=== PATIENT | female | born 1970 | race Caucasian/White ===

== ENCOUNTER 2021-10-15 18:00 | Emergency (ER) | payer OTHER, SELFPAY ==
[2021-10-15 18:07] VITALS: BP 122/89; PULSE 96; RESP 20; TEMP 36.7; O2SAT 98
--- NOTE | 2021-10-15 18:12 | ED.URI ---
HPI - URI/Sore Throat General Chief Complaint: Upper Respiratory Infection Stated Complaint: Chest Contestion Time Seen by Provider: 10/15/21 18:12 Source: patient and RN notes reviewed Related Data Home Medications Medication Instructions Recorded Confirmed cetirizine [Zyrtec] mg 05/15/19 metoprolol tartrate 100 mg PO DAILY 05/15/19 05/15/19 Allergies Allergy/AdvReac Type Severity Reaction Status Date / Time cefprozil Allergy Unknown Hives Verified 06/25/16 15:51 Cephalosporins Allergy Unknown Verified 04/02/15 14:19 Review of Systems Review of Systems: CONSTITUTIONAL: Denies fever, chills, or sweats. EYES: Denies visual changes, redness, or discharge. ENT: Denies rhinorrhea, congestion, sore throat, or otalgia. CARDIOVASCULAR: Denies chest pain, palpitations, or edema. RESPIRATORY: Denies cough or dyspnea. GASTROINTESTINAL: Denies abdominal pain, nausea, vomiting, or diarrhea. GENITOURINARY: Denies dysuria or hematuria. SKIN: Denies rash or itching. MUSCULOSKELETAL: Denies back pain, joint pain, or myalgia. NEUROLOGIC: Denies headache, numbness, or weakness. PSYCHIATRIC: Denies anxiety or depression. All other systems reviewed are negative, except as documented in HPI. [facility] Family History Family History Father Cerebrovascular accident Family history of Alzheimer's disease, Onset Age: 78 Grandparent Cerebrovascular accident Family history of malignant neoplasm Other Family history of blood dyscrasia Family history of pulmonary embolism Social History Social History Smoking status: Former smoker Smoking end date: 06/15/12 Alcohol intake: never Comments At the time of my signature, I reviewed and agree with the nursing past medical, surgical, social, and family history. There is no relevant family history pertinent to the patient complaint. Exam Narrative: GENERAL: This is a well-nourished, well-developed patient, in no apparent distress. HEAD: normocephalic, atraumatic. EYES: PERRL. Sclera clear/white. Vision is grossly intact. EARS: External ears normal, auditory canals clear and without drainage, TMs normal without perforation. Hearing grossly intact. NOSE: External nose normal with no obvious nasal discharge, nares without redness, no rhinorrhea. THROAT: Mucous membranes moist, posterior pharynx clear. NECK: Neck supple, non-tender without lymphadenopathy, masses or thyromegaly. CARDIOVASCULAR: Regular rate and rhythm without murmurs, gallops, or rubs. RESPIRATORY: Clear to auscultation. Breath sounds equal bilaterally. No wheezes, rales, or rhonchi. GASTROINTESTINAL: Abdomen soft, non-tender, nondistended. Bowel sounds are active. No hepato-splenomegaly, or palpable masses. No guarding. SKIN: warm, intact with no suspicious lesions or rash, good texture and turgor. NEURO: awake, alert, and oriented to person, place and time. There were no obvious focal neurologic abnormalities. EXTREMITIES: No clubbing, cyanosis, or edema. No joint tenderness, effusion, or edema noted. No calf tenderness. Negative Homans sign bilaterally. BACK: Nontender without deformity or crepitance. No flank tenderness. Course Course Level of Care: Express Care Visit MDM - URI/Sore Throat Differential Diagnosis Differential diagnosis: Likely upper respiratory infection, otitis media, sinusitis, viral infection, bronchitis, influenza and pharyngitis Critical Care Time Critical Care Time Critical Care Time: No Discharge Plan Discharge Prescriptions: No Action metoprolol tartrate 100 mg Tablet 100 mg PO DAILY RF: 0 Zyrtec 10 mg Capsule RF: 0
[2021-10-15 18:17] VITALS: BP 122/89; PULSE 96; RESP 20; TEMP 36.7; O2SAT 98
--- NOTE | 2021-10-15 18:20 | ED.URI ---
HPI - URI/Sore Throat General Chief Complaint: Upper Respiratory Infection Stated Complaint: Chest Contestion Time Seen by Provider: 10/15/21 18:12 Source: patient and RN notes reviewed History of Present Illness HPI Narrative: Patient is a 50-year-old female who presents the urgent care with complaints of persistent cough and intermittent shortness of breath. Patient states that she started having symptoms last Thursday and tested positive for COVID on Thursday. Patient states she also tested herself at home today and was still positive on a rapid test. Patient states that her symptoms have greatly improved and she no longer has the severe sinus congestion, fever or body aches. Patient states she only has instances with coughing and inability to catch her breath. Patient is currently denying of any shortness of breath or chest pain. No other acute complaints. No acute distress noted. Patient aware of the plan of care. Some parts of this dictation were generated by voice recognition software and may contain typographical and/or grammatical inaccuracies. Related Data Home Medications Medication Instructions Recorded Confirmed cetirizine [Zyrtec] 10 mg PO PRN PRN 05/15/19 erenumab-aooe [Aimovig 70 mg SUBCUT MONTHLY 10/15/21 10/15/21 Autoinjector] rizatriptan 10 mg PO DAILY PRN 10/15/21 10/15/21 sertraline 100 mg PO DAILY 10/15/21 10/15/21 Allergies Allergy/AdvReac Type Severity Reaction Status Date / Time cefprozil Allergy Unknown Hives Verified 06/25/16 15:51 Cephalosporins Allergy Unknown Rash Verified 10/15/21 18:15 Review of Systems Review of Systems: CONSTITUTIONAL: Denies fever, chills, or sweats. EYES: Denies visual changes, redness, or discharge. ENT: Denies rhinorrhea, congestion, sore throat, or otalgia. CARDIOVASCULAR: Denies chest pain, palpitations, or edema. RESPIRATORY: Reports of a faint cough with intermittent dyspnea GASTROINTESTINAL: Denies abdominal pain, nausea, vomiting, or diarrhea. GENITOURINARY: Denies dysuria or hematuria. SKIN: Denies rash or itching. MUSCULOSKELETAL: Denies back pain, joint pain, or myalgia. NEUROLOGIC: Denies headache, numbness, or weakness. All other systems reviewed are negative, except as documented in HPI. [facility] Family History Family History Father Cerebrovascular accident Family history of Alzheimer's disease, Onset Age: 78 Grandparent Cerebrovascular accident Family history of malignant neoplasm Other Family history of blood dyscrasia Family history of pulmonary embolism Social History Social History Smoking status: Former smoker Smoking end date: 06/15/12 Alcohol intake: never Comments At the time of my signature, I reviewed and agree with the nursing past medical, surgical, social, and family history. There is no relevant family history pertinent to the patient complaint. Exam Narrative: GENERAL: This is a well-nourished, well-developed patient. Appears anxious HEAD: normocephalic, atraumatic. EYES: PERRL. Sclera clear/white. Vision is grossly intact. EARS: External ears normal, auditory canals clear and without drainage, TMs normal without perforation. Hearing grossly intact. NOSE: External nose normal with no obvious nasal discharge, nares without redness, clear rhinorrhea. THROAT: Mucous membranes moist, posterior pharynx clear. Mild postnasal drainage NECK: Neck supple CARDIOVASCULAR: Regular rate and rhythm without murmurs, gallops, or rubs. RESPIRATORY: Clear to auscultation. Breath sounds equal bilaterally. No wheezes, rales, or rhonchi. SKIN: warm, intact with no suspicious lesions or rash, good texture and turgor. NEURO: awake, alert, and oriented to person, place and time. There were no obvious focal neurologic abnormalities. EXTREMITIES: No clubbing, cyanosis, or edema. Course Course Level of Care: Express Care Visi
== END 2021-10-15 18:30 | disposition home or self-care (01) ==
PROVIDERS: Emergency Provider Nurse Practitioner Family
DX: U07.1 COVID-19 (principal); Z87.891 Personal history of nicotine dependence
CPT/HCPCS: 99213; G0463

== ENCOUNTER 2021-11-29 17:36 | Emergency (ER) | payer OTHER, SELFPAY ==
--- NOTE | 2021-11-29 17:38 | ED.DENTAL ---
HPI - Dental/Oral General Chief complaint: Dental/Oral Stated complaint: Toothache Time Seen by Provider: 11/29/21 17:38 Source: patient and RN notes reviewed History of Present Illness HPI Narrative: Patient is a 50-year-old female who presents the urgent care with complaints of upper right dental pain. Patient states its been ongoing for the last couple days and more severe this morning. Patient states she tried Tylenol, ibuprofen and migraine medicine without relief. Denies any fever, nausea or vomiting. Patient states she was getting appropriate dental care until she lost her dental insurance. 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 No acute distress noted. Patient aware of the plan of care. Some parts of this dictation were generated by voice recognition software and may contain typographical and/or grammatical inaccuracies. Related Data Home Medications Medication Instructions Recorded Confirmed erenumab-aooe 70 mg/mL 70 mg subcut MONTHLY 10/15/21 11/29/21 subcutaneous auto-injector (Aimovig Autoinjector) rizatriptan 10 mg tablet 10 mg PO DAILY PRN Migraine 10/15/21 11/29/21 Headache sertraline 100 mg tablet 100 mg PO DAILY 10/15/21 11/29/21 Allergies Allergy/AdvReac Type Severity Reaction Status Date / Time cefprozil Allergy Unknown Hives Verified 11/29/21 17:42 Cephalosporins Allergy Unknown Rash Verified 11/29/21 17:42 Review of Systems Review of Systems: CONSTITUTIONAL: Denies fever, chills, or sweats. EYES: Denies visual changes, redness, or discharge. ENT: Denies rhinorrhea, congestion, sore throat, or otalgia. Reports of upper right dental pain CARDIOVASCULAR: Denies chest pain, palpitations, or edema. RESPIRATORY: Denies cough or dyspnea. GASTROINTESTINAL: Denies abdominal pain, nausea, vomiting, or diarrhea. GENITOURINARY: Denies dysuria or hematuria. SKIN: Denies rash or itching. MUSCULOSKELETAL: Denies back pain, joint pain, or myalgia. NEUROLOGIC: Denies headache, numbness, or weakness. All other systems reviewed are negative, except as documented in HPI. [facility] Family History Family History Father Cerebrovascular accident Family history of Alzheimer's disease, Onset Age: 78 Grandparent Cerebrovascular accident Family history of malignant neoplasm Other Family history of blood dyscrasia Family history of pulmonary embolism Social History Social History Smoking status: Former smoker Smoking end date: 06/15/12 Alcohol intake: never Comments At the time of my signature, I reviewed and agree with the nursing past medical, surgical, social, and family history. There is no relevant family history pertinent to the patient complaint. Exam Narrative: GENERAL: This is a well-nourished, well-developed patient, in no apparent distress. HEAD: normocephalic, atraumatic. EYES: PERRL. Sclera clear/white. Vision is grossly intact. EARS: External ears normal NOSE: External nose normal with no obvious nasal discharge, nares without redness, no rhinorrhea. THROAT: Mucous membranes moist, posterior pharynx clear. DENTAL: Poor dentition throughout with multiple carious lesions. Upper first and second right premolar avulsed at the gumline with carious lesions and surrounding erythema NECK: Neck supple CARDIOVASCULAR: Regular rate and rhythm without murmurs, gallops, or rubs. RESPIRATORY: Clear to auscultation. Breath sounds equal bilaterally. No wheezes, rales, or rhonchi. SKIN: warm, intact with no suspicious lesions or rash, good texture and turgor. NEURO: awake, alert, and oriented to person, place and time. There were no obvious focal neurologic abnormalities. EXTREMITIES: No clubbing, cyanosis, or edema. Course Course Level of Care: Express Care Visit Vital Signs Vital signs: Vital Signs Temperature 99.1 F 11/29/21 17:43 Pulse Rate 77 06
[2021-11-29 17:43] VITALS: BP 124/84; PULSE 77; RESP 16; TEMP 37.3; O2SAT 100
[2021-11-29 17:50] VITALS: BP 124/84; PULSE 77; RESP 16; TEMP 37.3; O2SAT 100
== END 2021-11-29 17:59 | disposition home or self-care (01) ==
PROVIDERS: Emergency Provider Nurse Practitioner Family; PCP Physician Assistant Medical
DX: K02.9 Dental caries, unspecified (principal); S02.5XXA Fracture of tooth (traumatic), initial encounter for closed fracture; X58.XXXA Exposure to other specified factors, initial encounter; Z87.891 Personal history of nicotine dependence; J45.909 Unspecified asthma, uncomplicated; E05.90 Thyrotoxicosis, unspecified without thyrotoxic crisis or storm; F41.9 Anxiety disorder, unspecified
CPT/HCPCS: 99213; G0463

== ENCOUNTER 2024-02-14 09:37 | Emergency (ER) | payer OTHER, SELFPAY ==
[2024-02-14 09:43] VITALS: BP 117/78; PULSE 66; RESP 16; TEMP 36.9; O2SAT 100
--- NOTE | 2024-02-14 09:52 | ED.GENADULT ---
HPI - General Adult General Chief complaint: Skin/Abscess/Foreign Body Stated complaint: Rash/Eye Swelling Source: patient Mode of arrival: ambulatory Limitations: no limitations History of Present Illness HPI narrative: Patient presents for evaluation of redness to her face for the last week. Symptoms started after using hyaluronic acid body wash on her face. She states that the redness is improving. She woke from sleep this morning with some puffiness to her lower eyelids. Denies any visual disturbance. She does not wear contacts. No redness, itching or pain in the eyes. She took zyrtec for her symptoms. Related Data Home Medications Medication Instructions Recorded Confirmed escitalopram oxalate 10 mg tablet 10 mg PO DAILY 02/14/24 02/14/24 Allergies Allergy/AdvReac Type Severity Reaction Status Date / Time cefprozil Allergy Unknown Hives Verified 02/14/24 09:48 Cephalosporins Allergy Unknown Rash Verified 02/14/24 09:48 Review of Systems Review of Systems: CONSTITUTIONAL: Denies fever, chills, or sweats. EYES: Reports puffiness to eyelids bilaterally. Denies visual changes, redness, or discharge. ENT: Denies rhinorrhea, congestion, sore throat, or otalgia. CARDIOVASCULAR: Denies chest pain, palpitations, or edema. RESPIRATORY: Denies cough or dyspnea. GASTROINTESTINAL: Denies abdominal pain, nausea, vomiting, or diarrhea. GENITOURINARY: Denies dysuria or hematuria. SKIN: Reports redness to the face. MUSCULOSKELETAL: Denies back pain, joint pain, or myalgia. NEUROLOGIC: Denies headache, numbness, dizziness, or weakness. PSYCHIATRIC: Denies anxiety or depression. [facility] Past Medical History Medical History No pertinent past medical history Surgical History Surgical History History of oophorectomy History of tubal ligation Family History Family History Father Cerebrovascular accident Family history of Alzheimer's disease, Onset Age: 78 Grandparent Cerebrovascular accident Family history of malignant neoplasm Other Family history of blood dyscrasia Family history of pulmonary embolism Social History Social History (Updated 02/14/24 @ 09:55 by Santana Swenson, [facility], ) Smoking status: Current every day smoker Tobacco type: e-cigarettes/vaping Smoking end date: 06/15/12 Alcohol intake: never Substance use: current Substance use type: marijuana Gender identity (if verbalized by the patient): Female Spiritual care concerns: No Exam Narrative: GENERAL: Well-appearing, well-nourished, and in no acute distress. HEAD: Normocephalic, atraumatic. EYES: PERRLA and EOMI. ENT: Nares clear, no rhinorrhea or epistaxis. Mucous membranes moist. Oropharynx without tonsillar hypertrophy exudate or other lesions. Bilateral TMs pearly herzog nonbulging NECK: Supple. No adenopathy or masses. No carotid bruits or JVD CHEST: Clear to auscultation. No respiratory distress. No wheezes rales or rhonchi HEART: Regular rate and rhythm. No murmur heard. Normal peripheral pulses. ABDOMEN: Soft, nontender, nondistended, normal active bowel sounds. EXTREMITIES: Normal range of motion. No edema. SKIN: Mild erythema noted to the face NEURO: No focal deficits. Alert and oriented x3. PSYCH: Normal mood and affect. Course Course Emergency Course: This is a 53-year-old female who presented for evaluation of redness to the face with puffiness to her eyelids. Symptoms likely 2/2 application of hyaluronic acid. Stop use to face. Willl discharge with medrol Dosepak. She may continue to take zyrtec or can switch to benadryl. Follow up with primary provider. Go to the ER for worsening symptoms. Pt in agreement with plan of care. Level of Care: Express Care Visit Vital Signs Vital signs: Vital Signs Te
== END 2024-02-14 09:52 | disposition home or self-care (01) ==
PROVIDERS: Emergency Provider Nurse Practitioner; PCP Physician Assistant
DX: T78.8XXA Other adverse effects, not elsewhere classified, initial encounter (principal); L53.9 Erythematous condition, unspecified; F17.290 Nicotine dependence, other tobacco product, uncomplicated; F12.90 Cannabis use, unspecified, uncomplicated
CPT/HCPCS: 99203; G0463

== ENCOUNTER 2024-07-31 19:53 | Emergency (ER) | payer MEDICARE, MEDICAID, SELFPAY ==
--- OUTSIDE RECORDS SUMMARY | 2024-07-31 19:55 | XMS_ITS | Encounter Summary ---
Author Organization [facility] Address [address] [place] [address] Phone Care Team Providers Care Circle Beveler Name Role Phone Angela, Cindy Matos [facility] Primary Care Pro vider Shawna Yip SHIP'S ENGINEER, CONVEYOR BELT OPERATOR Unavailable [phone] Reason for Visit * Reason Comments Medication Refill Encounter Details Date Type Department Care Team (Late st Contact Info) Description 01/20/2023 Refill [facility]rology - [address] [place] [id number] Shawna Yip, SHIP'S ENGINEER, CONVEYOR BELT OPERATOR [address] [place] [address] Medication Refill Social History Tobacco Use Types Packs/Day Years Used Date Smoking Tobacco: Former Cigarettes Q uit: 01/28/2015 Smokeless Tobacco: Never Alcohol Use Standard Drinks/Week Comments No 0 (1 standard drink = 0.6 oz pur e alcohol) PHQ-2 Answer Date Recorded Total Score - Questions 1-9 2 01/13 Sexually Active Control Partners Comments Yes None Male Comments No Sex and Gender Information Value Date Recorded Sex Assigned at Female 01/26/2023 7:31 AM CDT Legal Sex Female 11:54 PM CDT Gender Identity Female 01/26/2023 7:31 AM CDT Sexual Orientation Not on file documented as of this encounter Miscellaneous Notes * Telephone Encounter - Erika Stuton RN - 01/20/2023 11:54 AM CDT Medication failed the protocol, provider to review and approve the medication order if appropriate. Requested Prescriptions Pending Prescriptions Disp Refills sertraline (ZOLOFT) 100 MG Tablet [Pharmacy Med Name: Sertraline HCl 100 MG Oral Tablet] 90 Tablet 0 Sig: Take 1 tablet by mouth once daily SSRI (6 Month Refill Only) Protocol Failed - 01/20/2023 9:21 AM Failed - Visit with relevant provider in past 6 months or upcoming 90 days Recent Visits No visits were found meeting these conditions. Showing recent visits within past 182 days and meeting all other requirements Future Appointments Date Type Provider Dept 01/26/23 Appointment Cindy Miller PAC [facility] 02/04/23 Appointment Cindy Miller PAC [facility] Showing future appointments within next 90 days and meeting all other requirements Failed - Has an encounter in the past 6 months with a depression, anxiety, adjustment disorder, OCD, or PTSD visit diagnosis Passed - No test in the past 12 months or most recent test was negative Passed - No active on record Passed - Patient has established therapy with SS[facility] for at least 6 months documented in this encounter Plan of Treatment Upcoming Encounters Date Type Department Care Team (Latest Contact Info) Description 08/02/2024 1:00 PM MIXER ATTENDANT Outpatient Clinic Visit [facility] [address] [place] [address] Cindy Miller, NATHAN [address] [place] [address] Bhavya Rahman LCSW [address] [place] [address] Discharge Disposition: Discharged to home or Selfcare documented as of this encounter Visit Diagnoses Diagnosis Anxiety Anxiety state, unspecified documented in this encounter Additional Health Concerns Infection Onset Date Last Indicated Resolved Time Respiratory Rule-Out 04/21/2024 04/21/2024 11/07/2 024 4:11 PM MIXER ATTENDANT COVID - 19 04/21/2024 04/21/2024 04/21/2024 4:11 PM MIXER ATTENDANT COVID - 19 06/09/2024 06/09/2024 06/10/2024 12:1 9 AM MIXER ATTENDANT Assessment Noted Time PHQ-9 Depression Total Score: 2 01/23/20 22 4:00 PM CDT documented as of this encounter Care Teams Circle Beveler Relationship Specialty Start Date End Date Cindy Miller, [facility] [address] [place] [address] PCP - General Physician Hygiene Assistant 01/22/22 Shawna Yip, SHIP'S ENGINEER, CONVEYOR BELT OPERATOR [address] [place] [address] Nurse Practitioner Advanced Practice Nurse 05/07/22 documented as of this encounter
--- OUTSIDE RECORDS SUMMARY | 2024-07-31 19:55 | XMS_ITS | Encounter Summary ---
Author Organization [facility] Address [address] [place] [address] Phone Care Team Providers Care Pharmacognosy Teacher Name Role Phone Angela, Cindy Matos PAC Primary Care Pro vider Shawna Yip APRN, LEAD PROCESS ENGINEER Unavailable +1- [phone] Reason for Visit * Reason Comments Medication Refill Encounter Details Date Type Department Care Team (Late st Contact Info) Description 09/30/[address] [facility] - Neurology - [place] [address] [place] [id number] Shawna Yip, LANDSCAPE SPECIALIST, LEAD PROCESS ENGINEER [address] [place] [address] Medication Refill Social History Tobacco Use Types Packs/Day Years Used Date Smoking Tobacco: Former Cigarettes Q uit: 01/28/2015 Smokeless Tobacco: Never Alcohol Use Standard Drinks/Week Comments No 0 (1 standard drink = 0.6 oz pur e alcohol) [facility] Utilities Answer Date Recorded In the past 12 months has [employer] electric, gas, oil, or water company threatened to shut off services in your home? Yes 08/03/2023 Social Connection and Isolation Panel [NHANES] A nswer Date Recorded In a typical week, how many times do you talk on the phone with family, friends, or neighbors? Once a week 08/03/2023 Frequency of Social Gatherings with Friends and Family Not on file 08/03/2023 Attends Buddhism Services Not on file 08/03 Active Member of Clubs or Organizations Not on f ile 08/03/2023 Attends Club or Organization Meetings Not on sana e 08/03/2023 Marital Status Not on file 08/03/2023 AUDIT-C Answer Date Recorded Q1: How often do you have a drink containing alcohol? Never 08/03/2023 Q2: How many drinks containi ng alcohol do you have on a typical day when you are drinking? Patient does not drink Q3: How often do you have si x or more drinks on one occasion? Never 08/03/2023 Overall Financial Resource Strain (CARDIA) Answe r Date Recorded How hard is it for you to pa y for the very basics like food, housing, medical care, and heating? Not very hard 08/03/2023 PHQ-2 Answer Date Recorded Total Score - Questions 1-9 7 01/13 [facility] - Occupational Stress Questionnaire Answer Date Recorded Do you feel stress - tense, restless, nervous, or anxious, or unable to sleep at night because your mind is troubled all the time - these days? Very much 08/03/2023 Exercise Vital Sign Answer Date Recorde d On average, how many days pe r week do you engage in moderate to strenuous exercise (like a brisk walk)? 0 days 08/03/2023 On average, how many minutes do you engage in exercise at this level? 0 min 08/03/2023 Hunger Vital Sign Answer Date Recorded Within the past 12 months, y ou worried that your food would run out before you got the money to buy more. Never true 08/03/19 24 Within the past 12 months, t he food you bought just didn't last and you didn't have money to get more. Never true 08/03/2023 PRAPARE - Transportation Answer Date Re corded In the past 12 months, has l ack of transportation kept you from medical appointments or from getting medications? Yes 07/16 In the past 12 months, has l ack of transportation kept you from meetings, work, or from getting things needed for daily living? No 08/03/2023 Housing Stability Vital Sign Answer Micheal e Recorded In the last 12 months, was t here a time when you were not able to pay the mortgage or rent on time? No 08/03/2023 In the last 12 months, how many places have you lived? 1 08/03/2023 In the last 12 months, was t here a time when you did not have a steady place to sleep or slept in a alf (including now)? No 08/03/2023 Education Answer Date Recorded What is the highest level of school you have completed or the highest degree you have received? Associate degree: occupational, technical, or vocational program 01/26/2023 Sexually Active Control Partners Comments Yes None Male Comments No Sex and Gender Information Value Date Recorded Sex Assigned at Female 01/26/2023 7:31 AM CDT Legal Sex Female 11:54 PM CDT Gender Identity Female 01/26/2023 7:31 AM CDT Sexual Orientation Not on file documented as of this encounter Plan of Treatment Upcoming Encounters Date Type Department Care Team (Latest Contact Info) Description 08/02/2024 1:00 PM SECOND SHIFT SUPERVISOR Outpatient Clinic Visit [facility] [address] [place] [address] Cindy Miller, PAC [address] [place] [address] Bhavya Rahman, LACQUER COATER [address] [place] [address] Discharge Disposition: Discharged to home or Selfcare documented as of this encounter Visit Diagnoses Diagnosis Chronic migraine w/o aura w/o status migrainosus, not intractable Chronic migraine without aura, without mention of intractable migraine without mention of status migrainosus documented in this encounter Additional Health Concerns Infection Onset Date Last Indicated Resolved Time Respiratory Rule-Out 04/21/2024 04/21/2024 024 4:11 PM SECOND SHIFT SUPERVISOR COVID - 19 04/21/2024 04/21/2024 04/21/2024 4:11 PM SECOND SHIFT SUPERVISOR COVID - 19 06/09/2024 06/09/2024 06/10/2024 12:1 9 AM SECOND SHIFT SUPERVISOR Assessment Noted Time PHQ-9 Depression Total Score: 7 01/27/20 23 3:00 PM CDT documented as of this encounter Care Teams Pharmacognosy Teacher Relationship Specialty Start Date End Date Cindy Miller, NATHAN [address] [place] [address] PCP - General Physician Dust Mill Operator 01/22/22 Shawna Yip, LANDSCAPE SPECIALIST, LEAD PROCESS ENGINEER [address] [place] [address] Nurse Practitioner Advanced Practice Nurse 05/07/22 documented as of this encounter
--- OUTSIDE RECORDS SUMMARY | 2024-07-31 19:55 | XMS_ITS | Encounter Summary ---
Author Organization [facility] Address [address] [place] [address] Phone Care Team Providers Care General Hardware Salesperson Name Role Phone Provider, None Primary Care Provider Cindy Serrato PAC Primary Care Pro vider Shawna Yip CNA INSTRUCTOR, VENEER JOINTER OPERATOR Unavailable [phone]- [phone] Reason for Visit * Reason Comments Medication Refill Encounter Details Date Type Department Care Team (Late st Contact Info) Description 12/30/2021 Refill [facility] - [facility]rology [facility] [address] [place] [address] Frank Bowling MD [address] [place] [phone] Medication Refill Social History Tobacco Use Types Packs/Day Years Used Date Smoking Tobacco: Former Cigarettes Q uit: 01/28/2015 Smokeless Tobacco: Never Alcohol Use Standard Drinks/Week Comments No 0 (1 standard drink = 0.6 oz pur e alcohol) PHQ-2 Answer Date Recorded Total Score - Questions 1-9 6 01/13 Sexually Active Control Partners Comments Yes [...] (Latest Contact Info) Description 08/02/2024 1:00 PM RN PERINATAL Outpatient Clinic Visit [facility] [address] [place] [address] Cindy Milelr, PAC [address] [place] [address] Bhavya Rahman, CHIEF SALES OFFICER [address] [place] [address] Discharge Disposition: Discharged to home or Selfcare documented as of this encounter Visit Diagnoses Diagnosis Chronic migraine w/o aura w/o status migrainosus, not intractable Chronic migraine without aura, without mention of intractable migraine without mention of status migrainosus documented in this encounter Additional Health Concerns Infection Onset Date Last Indicated Resolved Time Respiratory Rule-Out 04/21/2024 04/21/2024 024 4:11 PM RN PERINATAL COVID - 19 04/21/2024 04/21/2024 04/21/2024 4:11 PM RN PERINATAL COVID - 19 06/09/2024 06/09/2024 06/10/2024 12:1 9 AM RN PERINATAL Assessment Noted Time PHQ-9 Depression Total Score: 6 01/25/20 21 9:00 AM CDT documented as of this encounter Care Teams General Hardware Salesperson Relationship Specialty Start Date End Date Provider, None [place] PCP - General 07/05/20 01/21/22 Cindy Miller, PAC [address] [place] [address] PCP - General Physician Coach Cleaner 01/22/22 Shawna Yip APRN, VENEER JOINTER OPERATOR [address] [place] [address] Nurse Practitioner Advanced Practice Nurse 05/07/22 documented as of this encounter
--- OUTSIDE RECORDS SUMMARY | 2024-07-31 19:55 | XMS_ITS | Encounter Summary ---
Author Organization [facility] Address [address] [place] [address] Phone Care Team Providers Care Server Software Engineer Name Role Phone Angela, Cindy Matos [facility] Primary Care Pro vider Shawna Yip SUPERVISOR SAWING AND ASSEMBLY, BUILDING SUPERINTENDENT Unavailable [phone]- [phone] Reason for Visit * Reason Comments Medication Refill Encounter Details Date Type Department Care Team (Late st Contact Info) Description 11/27/2022 Refill [facility] - Neurology - [place] [address] [place] [id number] Shawna Yip, SUPERVISOR SAWING AND ASSEMBLY, BUILDING SUPERINTENDENT [address] [place] [address] Medication Refill Social History Tobacco Use Types [...] Miscellaneous Notes * Telephone Encounter - Erika Sutton RN - 11/27/2022 1:22 PM CDT Medication failed the protocol, provider to review and approve the medication order if appropriate. Requested Prescriptions Pending Prescriptions Disp Refills Aimovig 140 MG/ML Solution Auto-injector [Pharmacy Med Name: Aimovig 140 MG/ML Subcutaneous Solution Auto-injector] 1 mL 3 Sig: INJECT 1ML (140MG) SUBCUTANEOUSLY ONCE EVERY 28 DAYS Not Delegated - Off Protocol Failed - 11/27/2022 1:12 PM Failed - This refill cannot be delegated Passed - Visit with relevant provider in past 12 months or upcoming 90 days Recent Visits Date Type Provider Dept 05/07/22 Office Visit Shawna Yip APRN, BUILDING SUPERINTENDENT [facility] 02/03/22 Office Visit Cindy Miller, PAC [facility] 01/22/22 Office Visit Cindy Miller, PAC [facility] Showing recent visits within past 365 days and meeting all other requirements Future Appointments Date Type Provider Dept 01/26/23 Appointment Cindy Miller, PAC [facility] Showing future appointments within next 90 days and meeting all other requirements documented in this encounter Plan of Treatment Upcoming Encounters Date Type Department Care Team (Latest Contact Info) Description 08/02/2024 1:00 PM PRINTER APPRENTICE [facility] [address] [place] [address] Cindy Miller, PAC [address] [place] [address] Bhavya Rahman, BOILERMAKING SUPERVISOR [address] [place] [address] Discharge Disposition: Discharged to home or Selfcare documented as of this encounter Visit Diagnoses Diagnosis Chronic migraine w/o aura w/o status migrainosus, not intractable Chronic migraine without aura, without mention of intractable migraine without mention of status migrainosus documented in this encounter Additional Health Concerns Infection Onset Date Last Indicated Resolved Time Respiratory Rule-Out 04/21/2024 04/21/2024 024 4:11 PM PRINTER APPRENTICE COVID - 19 04/21/2024 04/21/2024 04/21/2024 4:11 PM PRINTER APPRENTICE COVID - 19 06/09/2024 06/09/2024 06/10/2024 12:1 9 AM PRINTER APPRENTICE Assessment Noted Time PHQ-9 Depression Total Score: 2 01/23/20 4:00 PM CDT documented as of this encounter Care Teams Server Software Engineer Relationship Specialty Start Date End Date Cindy Miller, PAC [address] [place] [address] PCP - General Physician Gasoline Finisher 01/22/22 Shawna Yip, SUPERVISOR SAWING AND ASSEMBLY, BUILDING SUPERINTENDENT [address] [place] [address] Nurse Practitioner Advanced Practice Nurse 05/07/22 documented as of this encounter
--- OUTSIDE RECORDS SUMMARY | 2024-07-31 19:55 | XMS_ITS | Encounter Summary ---
Author Organization [facility] Address [address] [place] [address] Phone Care Team Providers Care Doll Wig Maker Name Role Phone Cindy Miller Primary Care Pro vider Shawna Yip APRN, ADMISSION LIAISON Unavailable [phone]- [phone] Reason for Visit * Reason Comments Medication Refill Encounter Details Date Type Department Care Team (Late st Contact Info) Description 10/30/2023 [facility] - [place] [address] [facility] [phone] Cindy Miller, PAC [address] [address] Medication Refill Social History Tobacco Use Types Packs/Day Years Used Date Smoking Tobacco: Former Cigarettes Q uit: 01/28/2015 Smokeless Tobacco: Never Alcohol Use Standard Drinks/Week Comments No 0 (1 standard drink = 0.6 oz pur e alcohol) [facility] Utilities Answer Date Recorded In the past 12 months has [employer] electric, gas, oil, or water company threatened to shut off services in your home? Yes 08/03/2023 Social Connection and Isolation Panel [NHANES] A nswer Date Recorded In a typical week, how many times do you talk on the phone with family, friends, or neighbors? Once a week 08/03/2023 Frequency of Social Gatherings with Friends and Family Not on file 08/03/2023 Attends Sabianism Services Not on file 08/03 Active Member [...] Total Score - Questions 1-9 7 01/13 [facility] - Occupational Stress Questionnaire Answer Date Recorded [...] place to sleep or slept in a chcf (including now)? No 08/03/2023 Education Answer Date [...] encounter Miscellaneous Notes * Telephone Encounter - Pippa Wolfe RN - 11/02/2023 8:57 AM CDT Medication failed the protocol, provider to review and approve the medication order if appropriate. Requested Prescriptions Pending Prescriptions Disp Refills escitalopram (LEXAPRO) 10 MG Tablet 90 Tablet 0 Sig: Take 1 Tablet by mouth daily. SSRI (6 Month Refill Only) Protocol Failed - 11/02/2023 8:56 AM Failed - Patient has established therapy with SSRI for at least 6 months Passed - No test in the past 12 months or most recent test was negative Passed - No active on record Passed - Visit with relevant provider in past 6 months or upcoming 90 days Recent Visits Date Type Provider Dept 08/03/23 Office Visit Cindy Miller, NATHAN [facility] Showing recent visits within past 182 days and meeting all other requirements Future Appointments No visits were found meeting these conditions. Showing future appointments within next 90 days and meeting all other requirements Passed - Has an encounter in the past 6 months with a depression, anxiety, adjustment disorder, OCD, or PTSD visit diagnosis Refused Prescriptions Disp Refills escitalopram (LEXAPRO) 10 MG Tablet [Pharmacy Med Name: Escitalopram Oxalate 10 MG Oral Tablet] 90 Tablet 0 Sig: Take 1 tablet by mouth once daily SSRI (6 Month Refill Only) Protocol Failed - 11/02/2023 8:56 AM Failed - Patient has established therapy with SSRI for at least 6 months Passed - No test in the past 12 months or most recent test was negative Passed - No active on record Passed - Visit with relevant provider in past 6 months or upcoming 90 days Recent Visits Date Type Provider Dept 08/03/23 Office Visit Cindy Miller, NATHAN [facility] [place] Showing recent visits within past 182 days and meeting all other requirements Future Appointments No visits were found meeting these conditions. Showing future appointments within next 90 days and meeting all other requirements Passed - Has an encounter in the past 6 months with a depression, anxiety, adjustment disorder, OCD, or PTSD visit diagnosis * Telephone Encounter - Pippa Wolfe RN - 10/30/2023 11:39 AM CDT Medication failed the protocol, provider to review and approve the medication order if appropriate. Requested Prescriptions Pending Prescriptions Disp Refills escitalopram (LEXAPRO) 10 MG Tablet [Pharmacy Med Name: Escitalopram Oxalate 10 MG Oral Tablet] 90 Tablet 0 Sig: Take 1 tablet by mouth once daily SSRI (6 Month Refill Only) Protocol Failed - 10/30/2023 9:18 AM Failed - Patient has established therapy with SSRI for at least 6 months Passed - No test in the past 12 months or most recent test was negative Passed - No active on record Passed - Visit with relevant provider in past 6 months or upcoming 90 days Recent Visits Date Type Provider Dept 08/03/23 Office Visit Cindy Miller, NATHAN [facility] [place] Showing recent visits within past 182 days and meeting all other requirements Future Appointments No visits were found meeting these conditions. Showing future appointments within next 90 days and meeting all other requirements Passed - Has an encounter in the past 6 months with a depression, anxiety, adjustment disorder, OCD, or PTSD visit diagnosis documented in this encounter Plan of Treatment Upcoming Encounters Date Type Department Care Team (Latest Contact Info) Description 08/02/2024 1:00 PM CHIEF SOLUTION ARCHITECT Outpatient Clinic Visit [facility] Services [address] [place] [address] Cindy Miller, PAC [address] [facility] [address] Bhavya Rahman LCSW [address] [place] [address] Discharge Disposition: Discharged to home or Selfcare documented as of this encounter Visit Diagnoses Not on filedocumented in this encounter Additional Health Concerns Infection Onset Date Last Indicated Resolved Time Respiratory Rule-Out 04/21/2024 04/21/2024 024 4:11 PM CHIEF SOLUTION ARCHITECT COVID - 19 04/21/2024 04/21/2024 04/21/2024 4:11 PM CHIEF SOLUTION ARCHITECT COVID - 19 06/09/2024 06/09/2024 06/10/2024 12:1 9 AM CHIEF SOLUTION ARCHITECT Assessment Noted Time PHQ-9 Depression Total Score: 7 01/27/20 23 3:00 PM CDT documented as of this encounter Care Teams Doll Wig Maker Relationship Specialty Start Date End Date Cindy Miller, PAC [address] [place] [address] PCP - General Physician Barge Loader 01/22/22 Shawna Yip, CREDIT SPECIALIST, ADMISSION LIAISON [address] [place] [address] Nurse Practitioner Advanced Practice Nurse 05/07/22 documented as of this encounter
--- OUTSIDE RECORDS SUMMARY | 2024-07-31 19:55 | XMS_ITS | Encounter Summary ---
Author Organization [facility] Address [address] [place] [address] Phone Care Team Providers Care Hiv Prevention Specialist Name Role Phone Provider, None Primary Care Provider Cindy Serrato PAC Primary Care Pro vider Shawna Yip PROJECT SCIENTIST, TRAIN CONTROL ELECTRONIC TECHNICIAN Unavailable [phone]- [phone] Reason for Visit * Reason Comments Medication Refill Encounter Details Date Type Department Care Team (Late st Contact Info) Description 10/30/2021 Refill [facility] - Neurology - [place] [address] [place] [address] Shawna Yip, PROJECT SCIENTIST, TRAIN CONTROL ELECTRONIC TECHNICIAN [address] [place] [address] Medication Refill Social History Tobacco Use Types [...] (Latest Contact Info) Description 08/02/2024 1:00 PM UNIX ENGINEER Outpatient Clinic Visit [facility] [address] [place] [address] Cindy Miller, PAC [address] [place] [address] Bhavya Rahman, PATHOLOGY LABORATORY AIDE [address] [place] [address] Discharge Disposition: Discharged to home or Selfcare documented as of this encounter Visit Diagnoses Diagnosis Anxiety Anxiety state, unspecified documented in this encounter Additional Health Concerns Infection Onset Date Last Indicated Resolved Time Respiratory Rule-Out 04/21/2024 04/21/2024 024 4:11 PM UNIX ENGINEER COVID - 19 04/21/2024 04/21/2024 04/21/2024 4:11 PM UNIX ENGINEER COVID - 19 06/09/2024 06/09/2024 06/10/2024 12:1 9 AM UNIX ENGINEER Assessment Noted Time PHQ-9 Depression Total Score: 6 01/25/20 21 9:00 AM CDT documented as of this encounter Care Teams Hiv Prevention Specialist Relationship Specialty Start Date End Date Provider, None [place] PCP - General 07/05/20 01/21/22 Cindy Miller, PAC [address] [place] [address] PCP - General Physician Shipwright Supervisor 01/22/22 Shawna Yip, PROJECT SCIENTIST, TRAIN CONTROL ELECTRONIC TECHNICIAN [address] [place] [address] Nurse Practitioner Advanced Practice Nurse 05/07/22 documented as of this encounter
--- OUTSIDE RECORDS SUMMARY | 2024-07-31 19:55 | XMS_ITS | Encounter Summary ---
Author Organization [facility] Address [address] [place] [address] Phone Care Team Providers Care Physics Technical Officer Name Role Phone Provider, None Primary Care Provider Cindy Serrato PAC Primary Care Pro vider Shawna Yip SUB PRIOR, PLUMBING ENGINEERING DRAFTSPERSON Unavailable [phone]- [phone] Reason for Visit * Reason Comments Medication Refill Encounter Details Date Type Department Care Team (Late st Contact Info) Description 02/26/2021 Refill [facility] - Neurology - [place] [address] [place] [address] Shawna Yip, SUB PRIOR, PLUMBING ENGINEERING DRAFTSPERSON [address] [place] [address] Medication Refill Social History Tobacco Use Types [...] (Latest Contact Info) Description 08/02/2024 1:00 PM REALTY LOAN SPECIALIST Outpatient Clinic Visit [facility] 1 [place] [address] Cindy Miller, PAC [address] [place] [address] Bhavya Rahman LCSW [address] [place] [address] Discharge Disposition: Discharged to home or Selfcare documented as of this encounter Visit Diagnoses Diagnosis Chronic migraine w/o aura w/o status migrainosus, not intractable- Primary Chronic migraine without aura, without mention of intractable migraine without mention of status migrainosus documented in this encounter Additional Health Concerns Infection Onset Date Last Indicated Resolved Time Respiratory Rule-Out 04/21/2024 04/21/2024 024 4:11 PM REALTY LOAN SPECIALIST COVID - 19 04/21/2024 04/21/2024 04/21/2024 4:11 PM REALTY LOAN SPECIALIST COVID - 19 06/09/2024 06/09/2024 06/10/2024 12:1 9 AM REALTY LOAN SPECIALIST Assessment Noted Time PHQ-9 Depression Total Score: 6 01/25/20 21 9:00 AM CDT documented as of this encounter Care Teams Physics Technical Officer Relationship Specialty Start Date End Date Provider, None [place] PCP - General 07/05/20 01/21/22 Cindy Miller, PAC [address] [place] [address] PCP - General Physician Chief Concierge 01/22/22 Shawna Yip, SUB PRIOR, PLUMBING ENGINEERING DRAFTSPERSON [address] [place] [address] Nurse Practitioner Advanced Practice Nurse 05/07/22 documented as of this encounter
--- OUTSIDE RECORDS SUMMARY | 2024-07-31 19:55 | XMS_ITS | Encounter Summary ---
Author Organization [facility] Address [address] [place] [place] [address] Phone Care Team Providers Care Insole Lip Turner Name Role Phone Provider, None Primary Care Provider Cindy Serrato PAC Primary Care Pro vider Shawna Yip ENVIRONMENTAL SYSTEMS COORDINATOR, COUNTRY SALES MANAGER Unavailable +1- [phone] Reason for Visit * Reason Comments Medication Refill Encounter Details Date Type Department Care Team (Late st Contact Info) Description 07/02/2021 Refill [facility] - Neurology [facility] [address]2 [place] [address] Frank Bowling MD [address]2 [place] [phone] Medication Refill Social History Tobacco Use Types [...] (Latest Contact Info) Description 08/02/2024 1:00 PM TOOL CARRIER Outpatient [facility] 1 [place] [address] Cindy Miller, PAC [address] [place] [address] Bhavya Rahman, SCRAP HANDLER [address] [place] [address] Discharge Disposition: Discharged to home or Selfcare documented as of this encounter Visit Diagnoses Diagnosis Chronic migraine w/o aura w/o status migrainosus, not intractable Chronic migraine without aura, without mention of intractable migraine without mention of status migrainosus documented in this encounter Additional Health Concerns Infection Onset Date Last Indicated Resolved Time Respiratory Rule-Out 04/21/2024 04/21/2024 024 4:11 PM TOOL CARRIER COVID - 19 04/21/2024 04/21/2024 04/21/2024 4:11 PM TOOL CARRIER COVID - 19 06/09/2024 06/09/2024 06/10/2024 12:1 9 AM TOOL CARRIER Assessment Noted Time PHQ-9 Depression Total Score: 6 01/25/20 21 9:00 AM CDT documented as of this encounter Care Teams Insole Lip Turner Relationship Specialty Start Date End Date Provider, None [place] PCP - General 07/05/20 01/21/22 Cindy Miller, PAC [address] [place] [address] PCP - General Physician Manager Winter 01/22/22 Shawna Yip APRN, COUNTRY SALES MANAGER [address] [place] [address] Nurse Practitioner Advanced Practice Nurse 05/07/22 documented as of this encounter
--- OUTSIDE RECORDS SUMMARY | 2024-07-31 19:55 | XMS_ITS | Encounter Summary ---
Author Organization [facility] Address [address] [place] [address] Phone Care Team Providers Care Sock Mender Name Role Phone Provider, None Primary Care Provider Cindy Serrato PAC Primary Care Pro vider Shawna Yip TRAFFIC INCIDENT MANAGEMENT MANAGER, SAP GRC SECURITY Unavailable [phone]- [phone] Reason for Visit * Reason Comments Medication Refill Encounter Details Date Type Department Care Team (Late st Contact Info) Description 01/02/2021 Refill [facility] - Neurology - [place] [address]2 [place] [address] Shawna Yip, TRAFFIC INCIDENT MANAGEMENT MANAGER, SAP GRC SECURITY [address] [place] [address] Medication Refill Social History Tobacco Use Types Packs/Day Years Used Date Smoking Tobacco: Former Cigarettes Q uit: 01/28/2015 Smokeless Tobacco: Never Alcohol Use Standard Drinks/Week Comments No 0 (1 standard drink = 0.6 oz pur e alcohol) PHQ-2 Answer Date Recorded PHQ-2 Score 0 02/16/2019 Sexually Active Control Partners Comments Yes None Male Comments No Sex and Gender Information Value Date Recorded Sex Assigned at Female 01/26/2023 7:31 AM CDT Legal Sex Female 11:54 PM CDT Gender Identity Female 01/26/2023 7:31 AM CDT Sexual Orientation Not on file COVID-19 Exposure Response Date Recorded In the last month, have you been in contact with someone who was confirmed or suspected to have Coronavirus / COVID-19? No / Unsure 01/02/2021 10:20 AM CDT documented as of this encounter Plan of Treatment Upcoming Encounters Date Type Department Care Team (Latest Contact Info) Description 08/02/2024 1:00 PM STRAWHAT BLOCKING OPERATOR [facility] 1 [place] [address] Cindy Miller, PAC [address] [place] [address] Bhavya Rahman LCSW [address] [place] [address] Discharge Disposition: Discharged to home or Selfcare documented as of this encounter Visit Diagnoses Diagnosis Chronic migraine w/o aura w/o status migrainosus, not intractable Chronic migraine without aura, without mention of intractable migraine without mention of status migrainosus documented in this encounter Additional Health Concerns Infection Onset Date Last Indicated Resolved Time Respiratory Rule-Out 04/21/2024 04/21/2024 024 4:11 PM STRAWHAT BLOCKING OPERATOR COVID - 19 04/21/2024 04/21/2024 04/21/2024 4:11 PM STRAWHAT BLOCKING OPERATOR COVID - 19 06/09/2024 06/09/2024 06/10/2024 12:1 9 AM STRAWHAT BLOCKING OPERATOR Assessment Noted Time PHQ-9 Depression Total Score: 0 03/12/20 18 3:00 PM CDT documented as of this encounter Care Teams Sock Mender Relationship Specialty Start Date End Date Provider, None [place] PCP - General 07/05/20 01/21/22 Cindy Miller, PAC [address] [place] [address] PCP - General Physician Post Doc Fellowship 01/22/22 Shawna Yip APRN, SAP GRC SECURITY [address] [place] [address] Nurse Practitioner Advanced Practice Nurse 05/07/22 documented as of this encounter
--- OUTSIDE RECORDS SUMMARY | 2024-07-31 19:55 | XMS_ITS | Encounter Summary ---
Author Organization [facility] Address [address] [place] [address] Phone Care Team Providers Care Turn Down Man Name Role Phone Angela Cindy Matos PAC Primary Care Pro vider Shawna Yip MANAGER FREELANCE, UNDERGROUND ELECTRICIAN Unavailable [phone]- [phone] Reason for Visit * Reason Comments Medication Refill Encounter Details Date Type Department Care Team (Late st Contact Info) Description 01/22/2022 Refill [facility] - Neurology - [place] [address]2 [place] [address] Frank Bowling MD [address] [place] [phone] Medication Refill Social History Tobacco Use Types [...] Exposure Response Date Recorded In the last 10 days, have yo u been in contact with someone who was confirmed or suspected to have Coronavirus/COVID-19? No / Unsure 01/22/2022 3:50 PM CDT documented as of this encounter Plan of Treatment Upcoming Encounters Date Type Department Care Team (Latest Contact Info) Description 08/02/2024 1:00 PM LABORATORY MECHANICAL TECHNICIAN [facility] 1 [place] [address] Cindy Miller, PAC [address] [place] [address] Bhavya Rahman LCSW [address] [place] [address] Discharge Disposition: Discharged to home or Selfcare documented as of this encounter Visit Diagnoses Diagnosis Chronic migraine w/o aura w/o status migrainosus, not intractable Chronic migraine without aura, without mention of intractable migraine without mention of status migrainosus documented in this encounter Additional Health Concerns Infection Onset Date Last Indicated Resolved Time Respiratory Rule-Out 04/21/2024 04/21/2024 024 4:11 PM LABORATORY MECHANICAL TECHNICIAN COVID - 19 04/21/2024 04/21/2024 04/21/2024 4:11 PM LABORATORY MECHANICAL TECHNICIAN COVID - 19 06/09/2024 06/09/2024 06/10/2024 12:1 9 AM LABORATORY MECHANICAL TECHNICIAN Assessment Noted Time PHQ-9 Depression Total Score: 2 01/23/20 22 4:00 PM CDT documented as of this encounter Care Teams Turn Down Man Relationship Specialty Start Date End Date Cindy Miller, PAC [address] [place] [address] PCP - General Physician Member Service Specialist 01/22/22 Shawna Yip APRN, UNDERGROUND ELECTRICIAN [address] [place] [address] Nurse Practitioner Advanced Practice Nurse 05/07/22 documented as of this encounter
--- OUTSIDE RECORDS SUMMARY | 2024-07-31 19:55 | XMS_ITS | Encounter Summary ---
Author Organization [facility] Address [address] [place] [address] Phone Care Team Providers Care Beef Tagger Name Role Phone Angela, Cindy Matos PAC Primary Care Pro vider Shawna Yip APRN, CAR WHACKER Unavailable [phone]- [phone] Reason for Visit * Reason Comments Medication Refill Encounter Details Date Type Department Care Team (Late st Contact Info) Description 03/10/2023 Refill [facility] - Neurology - [place] [address] [place] [phone] Shawna Yip, GREASER HELPER, CAR WHACKER [address] [place] [address] Medication Refill Social History Tobacco Use Types Packs/Day Years Used Date Smoking Tobacco: Former Cigarettes Q uit: 01/28/2015 Smokeless Tobacco: Never Alcohol Use Standard Drinks/Week Comments No 0 (1 standard drink = 0.6 oz pur e alcohol) PHQ-2 Answer Date Recorded Total Score - Questions 1-9 7 01/13 Education Answer Date Recorded What is the [...] Telephone Encounter - Erika Sutton RN - 03/10/2023 9:59 AM CDT Medication failed the protocol, provider to review and approve the medication order if appropriate. Requested Prescriptions Pending Prescriptions Disp Refills Aimovig 140 MG/ML Solution Auto-injector [Pharmacy Med Name: Aimovig 140 MG/ML Subcutaneous Solution Auto-injector] 1 mL 2 Sig: INJECT 1 ML (140 MG) SUBCUTANEOUSLY ONCE EVERY 28 DAYS Not Delegated - Off Protocol Failed - 03/10/2023 9:32 AM Failed - This refill cannot be delegated Passed - Visit with relevant provider in past 12 months or upcoming 90 days Recent Visits Date Type Provider Dept 01/26/23 Office Visit Cindy Miller, NATHAN [facility] Kasia Baker 05/07/22 Office Visit Shawna Yip APRN, CAR WHACKER [facility] Showing recent visits within past 365 days and meeting all other requirements Future Appointments No visits were found meeting these conditions. Showing future appointments within next 90 days and meeting all other requirements documented in this encounter Plan of Treatment Upcoming Encounters Date Type Department Care Team (Latest Contact Info) Description 08/02/2024 1:00 PM WOOD FLOORING SPECIALIST [facility] 1 [place] [address] Cindy Miller, PAC [address] [place] [address] Bhavya Rahman LCSW [address] [place] [address] Discharge Disposition: Discharged to home or Selfcare documented as of this encounter Visit Diagnoses Diagnosis Chronic migraine w/o aura w/o status migrainosus, not intractable Chronic migraine without aura, without mention of intractable migraine without mention of status migrainosus documented in this encounter Additional Health Concerns Infection Onset Date Last Indicated Resolved Time Respiratory Rule-Out 04/21/2024 04/21/2024 024 4:11 PM WOOD FLOORING SPECIALIST COVID - 19 04/21/2024 04/21/2024 04/21/2024 4:11 PM WOOD FLOORING SPECIALIST COVID - 19 06/09/2024 06/09/2024 06/10/2024 12:1 9 AM WOOD FLOORING SPECIALIST Assessment Noted Time PHQ-9 Depression Total Score: 7 01/27/20 23 3:00 PM CDT documented as of this encounter Care Teams Beef Tagger Relationship Specialty Start Date End Date Cindy Miller, PAC [address] [place] [address] PCP - General Physician Grocery Associate 01/22/22 Shawna Yip, GREASER HELPER, CAR WHACKER [address] [place] [address] Nurse Practitioner Advanced Practice Nurse 05/07/22 documented as of this encounter
--- OUTSIDE RECORDS SUMMARY | 2024-07-31 19:55 | XMS_ITS | Encounter Summary ---
Author Organization [facility] Address [address] [place] [address] Phone Care Team Providers Care Supervisor Rose Grading Name Role Phone Angela, Cindy Matos PAC Primary Care Pro vider Shawna Yip APRN, US ADMINISTRATIVE LAW JUDGE Unavailable [phone]- [phone] Reason for Visit * Reason Comments Medication Refill Encounter Details Date Type Department Care Team (Late st Contact Info) Description 06/04/2023 Refill [facility] - Neurology - [place] [address] [place] [phone] Shawna Yip, COMMUNITY MANAGER, US ADMINISTRATIVE LAW JUDGE [address] [place] [address] Medication Refill Social History Tobacco Use Types [...] Telephone Encounter - Erika Sutton RN - 06/04/2023 10:59 AM CST Medication failed the protocol, provider to review and approve the medication order if appropriate. Requested Prescriptions Pending Prescriptions Disp Refills Aimovig 140 MG/ML Solution Auto-injector [Pharmacy Med Name: Aimovig 140 MG/ML Subcutaneous Solution Auto-injector] 1 mL 1 Sig: INJECT 1 ML SUBCUTANEOUSLY ONCE EVERY 28 DAYS Not Delegated - Off Protocol Failed - 06/04/2023 9:08 AM Failed - This refill cannot be delegated Failed - Visit with relevant provider in past 12 months or upcoming 90 days Recent Visits Date Type Provider Dept 01/26/23 Office Visit Cindy Miller, PAC [facility] Showing recent visits within past 365 days and meeting all other requirements Future Appointments No visits were found meeting these conditions. Showing future appointments within next 90 days and meeting all other requirements ERER BARREL RIBS documented in this encounter Plan of Treatment Upcoming Encounters Date Type Department Care Team (Latest Contact Info) Description 08/02/2024 1:00 PM SOLDERER BARREL RIBS [facility] 1 [place] [address] Cindy Miller, PAC [address] [place] [address] Bhavya Rahman, CONSOLE MANAGER [address] [place] [address] Discharge Disposition: Discharged to home or Selfcare documented as of this encounter Visit Diagnoses Diagnosis Chronic migraine w/o aura w/o status migrainosus, not intractable Chronic migraine without aura, without mention of intractable migraine without mention of status migrainosus documented in this encounter Additional Health Concerns Infection Onset Date Last Indicated Resolved Time Respiratory Rule-Out 04/21/2024 04/21/2024 024 4:11 PM SOLDERER BARREL RIBS COVID - 19 04/21/2024 04/21/2024 04/21/2024 4:11 PM SOLDERER BARREL RIBS COVID - 19 06/09/2024 06/09/2024 06/10/2024 12:1 9 AM SOLDERER BARREL RIBS Assessment Noted Time PHQ-9 Depression Total Score: 7 01/27/20 23 3:00 PM CDT documented as of this encounter Care Teams Supervisor Rose Grading Relationship Specialty Start Date End Date Cindy Miller, [facility] [address] [place] [address] PCP - General Physician Regulatory Compliance Officer 01/22/22 Shawna Yip, COMMUNITY MANAGER, US ADMINISTRATIVE LAW JUDGE [address] [place] [address] Nurse Practitioner Advanced Practice Nurse 05/07/22 documented as of this encounter
--- OUTSIDE RECORDS SUMMARY | 2024-07-31 19:55 | XMS_ITS | Encounter Summary ---
Author Organization [facility] Address [address] [place] [address] Phone Care Team Providers Care Dinkey Engine Firer/Fireman Name Role Phone Provider, None Primary Care Provider Cindy Serrato PAC Primary Care Pro vider Shawna Yip MAINFRAME SYSTEMS PROGRAMMER, LAYDOWN MACHINE OPERATOR Unavailable [phone]- [phone] Reason for Visit * Reason Comments Medication Refill Encounter Details Date Type Department Care Team (Late st Contact Info) Description 05/25/2021 Refill [facility] - Neurology [facility] #2 [place] [address] Frank Bowling MD [address] [place] [address] Medication Refill Social History Tobacco Use Types [...] (Latest Contact Info) Description 08/02/2024 1:00 PM CLAIMS SERVICE ADJUSTOR Outpatient Clinic [facility] 1 [place] [address] Cindy Miller, PAC [address] [place] [address] Bhavya Rahman, HOME ECONOMICS EXPERT [address] [place] [address] Discharge Disposition: Discharged to home or Selfcare documented as of this encounter Visit Diagnoses Diagnosis Chronic migraine w/o aura w/o status migrainosus, not intractable Chronic migraine without aura, without mention of intractable migraine without mention of status migrainosus documented in this encounter Additional Health Concerns Infection Onset Date Last Indicated Resolved Time Respiratory Rule-Out 04/21/2024 04/21/2024 024 4:11 PM CLAIMS SERVICE ADJUSTOR COVID - 19 04/21/2024 04/21/2024 04/21/2024 4:11 PM CLAIMS SERVICE ADJUSTOR COVID - 19 06/09/2024 06/09/2024 06/10/2024 12:1 9 AM CLAIMS SERVICE ADJUSTOR Assessment Noted Time PHQ-9 Depression Total Score: 6 01/25/20 21 9:00 AM CDT documented as of this encounter Care Teams Dinkey Engine Firer/Fireman Relationship Specialty Start Date End Date Provider, None [place] PCP - General 07/05/20 01/21/22 Cindy Miller, PAC [address] [place] [address] PCP - General Physician Child Welfare Consultant 01/22/22 Shawna Yip APRN, LAYDOWN MACHINE OPERATOR [address] [place] [address] Nurse Practitioner Advanced Practice Nurse 05/07/22 documented as of this encounter
--- OUTSIDE RECORDS SUMMARY | 2024-07-31 19:55 | XMS_ITS | Encounter Summary ---
Author Organization [facility] Address [address] [place] [address] Phone Care Team Providers Care Blank Driller Name Role Phone Provider, None Primary Care Provider Cindy Serrato PAC Primary Care Pro vider Shawna Yip SELECT BANKER, CREW LEADER Unavailable [phone]- [phone] Reason for Visit * Reason Comments Medication Refill Encounter Details Date Type Department Care Team (Late st Contact Info) Description 12/09/2021 Refill [facility] - Neurology - [place] [address]2 [place] [address] Shawna Yip, SELECT BANKER, CREW LEADER [address] [place] [address] Medication Refill Social History Tobacco Use Types [...] (Latest Contact Info) Description 08/02/2024 1:00 PM SVP OPERATIONS Outpatient Clinic [facility] 1 [place] [address] Cindy Miller, PAC [address] [place] [address] Bhavya Rahman, OPERATIONS DEVELOPER [address] [place] [address] Discharge Disposition: Discharged to home or Selfcare documented as of this encounter Visit Diagnoses Diagnosis Chronic migraine w/o aura w/o status migrainosus, not intractable Chronic migraine without aura, without mention of intractable migraine without mention of status migrainosus documented in this encounter Additional Health Concerns Infection Onset Date Last Indicated Resolved Time Respiratory Rule-Out 04/21/2024 04/21/2024 024 4:11 PM SVP OPERATIONS COVID - 19 04/21/2024 04/21/2024 04/21/2024 4:11 PM SVP OPERATIONS COVID - 19 06/09/2024 06/09/2024 06/10/2024 12:1 9 AM SVP OPERATIONS Assessment Noted Time PHQ-9 Depression Total Score: 6 01/25/20 21 9:00 AM CDT documented as of this encounter Care Teams Blank Driller Relationship Specialty Start Date End Date Provider, None [place] PCP - General 07/05/20 01/21/22 Cindy Miller, PAC [address] [place] [address] PCP - General Physician Distribution Driver 01/22/22 Shawna Yip APRN, CREW LEADER [address] [place] [address] Nurse Practitioner Advanced Practice Nurse 05/07/22 documented as of this encounter
--- OUTSIDE RECORDS SUMMARY | 2024-07-31 19:55 | XMS_ITS | Encounter Summary ---
Author Organization [facility] Address [address] [place] [address] Phone Care Team Providers Care Clinical Project Manager Name Role Phone Angela Cindy Matos PAC Primary Care Pro vider Shawna Yip YARN SKEINS EXAMINER, COLLAR POINTER Unavailable [phone]- [phone] Reason for Visit * Reason Comments Medication Refill Encounter Details Date Type Department Care Team (Late st Contact Info) Description 02/24/[address] [facility] - Neurology - [place] [address] [place] [address] Frank Bowling MD [address] [place] [address] Medication Refill Social History Tobacco Use Types [...] suspected to have Coronavirus/COVID-19? No / Unsure 02/03/2022 1:18 PM CDT documented as of this encounter Plan of Treatment Upcoming Encounters Date Type Department Care Team (Latest Contact Info) Description 08/02/2024 1:00 PM ELECTRICIAN APPRENTICE POWERHOUSE Outpatient [facility] 1 [place] [address] Cindy Miller, PAC [address] [place] [address] Bhavya Rahman LCSW [address] [place] [address] Discharge Disposition: Discharged to home or Selfcare documented as of this encounter Visit Diagnoses Diagnosis Chronic migraine w/o aura w/o status migrainosus, not intractable Chronic migraine without aura, without mention of intractable migraine without mention of status migrainosus documented in this encounter Additional Health Concerns Infection Onset Date Last Indicated Resolved Time Respiratory Rule-Out 04/21/2024 04/21/2024 024 4:11 PM ELECTRICIAN APPRENTICE POWERHOUSE COVID - 19 04/21/2024 04/21/2024 04/21/2024 4:11 PM ELECTRICIAN APPRENTICE POWERHOUSE COVID - 19 06/09/2024 06/09/2024 06/10/2024 12:1 9 AM ELECTRICIAN APPRENTICE POWERHOUSE Assessment Noted Time PHQ-9 Depression Total Score: 2 01/23/20 22 4:00 PM CDT documented as of this encounter Care Teams Clinical Project Manager Relationship Specialty Start Date End Date Cindy Miller, PAC [address] [place] [address] PCP - General Physician Evp Operations 01/22/22 Shawna Yip APRN, COLLAR POINTER [address] [place] [address] Nurse Practitioner Advanced Practice Nurse 05/07/22 documented as of this encounter
--- OUTSIDE RECORDS SUMMARY | 2024-07-31 19:55 | XMS_ITS | Encounter Summary ---
Author Organization [facility] Address [address] [place] [address] Phone Care Team Providers Care Liquor Clerk Name Role Phone Angela, Cindy Matos PAC Primary Care Pro vider Shawna Yip APRN, DOCTOR OF PODIATRIC MEDICINE Unavailable [phone]- [phone] Reason for Visit * Reason Comments Medication Refill Encounter Details Date Type Department Care Team (Late st Contact Info) Description 08/05/2023 Refill [facility] - Neurology - [place] #2 [place] [phone] Shawna Yip, CONTENT CREATION MANAGER, DOCTOR OF PODIATRIC MEDICINE [address] [place] [address] Medication Refill Social History Tobacco Use Types Packs/Day Years Used Date Smoking Tobacco: Former Cigarettes Q uit: 01/28/2015 Smokeless Tobacco: Never Alcohol Use Standard Drinks/Week Comments No 0 (1 standard drink = 0.6 oz pur e alcohol) [facility] Utilities Answer Date Recorded In the past 12 months has [employer] electric, gas, oil, or water company threatened to shut off services in your home? Yes 08/03/2023 Social Connection and Isolation Panel [NHANES] A nswer Date Recorded In a typical week, how many times do you talk on the phone with family, friends, or neighbors? Once a week 08/03/2023 Frequency of Social Gatherings with Friends and Family Not on file 08/03/2023 Attends [employer] Services Not on file 08/03 Active Member [...] Total Score - Questions 1-9 7 01/13 [facility] - Occupational Stress Questionnaire Answer Date Recorded [...] place to sleep or slept in a senior living (including now)? No 08/03/2023 Education Answer Date [...] (Latest Contact Info) Description 08/02/2024 1:00 PM COLOR CHECKER ROVING OR YARN Out[facility] 1 [place] [address] Cindy Miller, PAC [address] [place] [address] Bhavya Rahman, FIRST AID ATTENDANT [address] [place] [address] Discharge Disposition: Discharged to home or Selfcare documented as of this encounter Visit Diagnoses Diagnosis Chronic migraine w/o aura w/o status migrainosus, not intractable Chronic migraine without aura, without mention of intractable migraine without mention of status migrainosus documented in this encounter Additional Health Concerns Infection Onset Date Last Indicated Resolved Time Respiratory Rule-Out 04/21/2024 04/21/2024 024 4:11 PM COLOR CHECKER ROVING OR YARN COVID - 19 04/21/2024 04/21/2024 04/21/2024 4:11 PM COLOR CHECKER ROVING OR YARN COVID - 19 06/09/2024 06/09/2024 06/10/2024 12:1 9 AM COLOR CHECKER ROVING OR YARN Assessment Noted Time PHQ-9 Depression Total Score: 7 01/27/20 23 3:00 PM CDT documented as of this encounter Care Teams Liquor Clerk Relationship Specialty Start Date End Date Cindy Miller, NATHAN [address] [place] [address] PCP - General Physician Yoker 01/22/22 Shawna Yip, CONTENT CREATION MANAGER, DOCTOR OF PODIATRIC MEDICINE [address] [place] [address] Nurse Practitioner Advanced Practice Nurse 05/07/22 documented as of this encounter
--- OUTSIDE RECORDS SUMMARY | 2024-07-31 19:55 | XMS_ITS | Encounter Summary ---
Author Organization [facility] Address [address] [place] [address] Phone Care Team Providers Care Automotive Quality Engineer Name Role Phone Provider, None Primary Care Provider Cindy Serrato PAC Primary Care Pro vider Shawna Yip BRICK BURNER HEAD, PREFLIGHT MECHANIC Unavailable +1- [phone] Reason for Visit * Reason Comments Medication Refill Encounter Details Date Type Department Care Team (Late st Contact Info) Description 06/06/2021 Refill [facility] - Neurology - [place] [address] [place] [address] Shawna Yip, BRICK BURNER HEAD, PREFLIGHT MECHANIC [address] [place] [address] Medication Refill Social History Tobacco Use Types [...] (Latest Contact Info) Description 08/02/2024 1:00 PM SCHEDULING ASSISTANT Outpatient Clinic Visit [facility] [address] [place] [address] Cindy Miller, PAC [address] [place] [address] Bhavya Rahman, VOCATIONAL COUNSELOR [address] [place] [address] Discharge Disposition: Discharged to home or Selfcare documented as of this encounter Visit Diagnoses Diagnosis Chronic migraine w/o aura w/o status migrainosus, not intractable Chronic migraine without aura, without mention of intractable migraine without mention of status migrainosus documented in this encounter Additional Health Concerns Infection Onset Date Last Indicated Resolved Time Respiratory Rule-Out 04/21/2024 04/21/2024 024 4:11 PM SCHEDULING ASSISTANT COVID - 19 04/21/2024 04/21/2024 04/21/2024 4:11 PM SCHEDULING ASSISTANT COVID - 19 06/09/2024 06/09/2024 06/10/2024 12:1 9 AM SCHEDULING ASSISTANT Assessment Noted Time PHQ-9 Depression Total Score: 6 01/25/20 21 9:00 AM CDT documented as of this encounter Care Teams Automotive Quality Engineer Relationship Specialty Start Date End Date Provider, None [place] PCP - General 07/05/20 01/21/22 Cindy Miller, PAC [address] [place] [address] PCP - General Physician Drawing Operator 01/22/22 Shawna Yip APRN, PREFLIGHT MECHANIC [address] [place] [address] Nurse Practitioner Advanced Practice Nurse 05/07/22 documented as of this encounter
--- OUTSIDE RECORDS SUMMARY | 2024-07-31 19:55 | XMS_ITS | Encounter Summary ---
Author Organization [facility] Address [address] [place] [address] Phone Care Team Providers Care Space Scheduler Name Role Phone Cindy Miller PAC Primary Care Pro vider Shawna Yip MACHINE REBUILDER, THEATRICAL AGENT Unavailable [phone]- [phone] Reason for Visit * Reason Comments Medication Refill Encounter Details Date Type Department Care Team (Late st Contact Info) Description 02/12/2023 [facility]ill [facility] - [place] [address] [place] [id number] Jhoana Waters, PAC [address] [place] [address] Medication Refill Social History Tobacco Use Types [...] suspected to have Coronavirus/COVID-19? No / Unsure 01/26/2023 3:34 PM CDT documented as of this encounter Plan of Treatment Upcoming Encounters Date Type Department Care Team (Latest Contact Info) Description 08/02/2024 1:00 PM TOOL AND DIE SUPERVISOR [facility] [address] [place] [address] Cindy Miller, PAC [address] [place] [address] Bhavya Rahman, SCHOOL OFFICE ASSISTANT [address] [place] [address] Discharge Disposition: Discharged to home or Selfcare documented as of this encounter Visit Diagnoses Not on filedocumented in this encounter Additional Health Concerns Infection Onset Date Last Indicated Resolved Time Respiratory Rule-Out 04/21/2024 04/21/2024 024 4:11 PM TOOL AND DIE SUPERVISOR COVID - 19 04/21/2024 04/21/2024 04/21/2024 4:11 PM TOOL AND DIE SUPERVISOR COVID - 19 06/09/2024 06/09/2024 06/10/2024 12:1 9 AM TOOL AND DIE SUPERVISOR Assessment Noted Time PHQ-9 Depression Total Score: 7 01/27/20 23 3:00 PM CDT documented as of this encounter Care Teams Space Scheduler Relationship Specialty Start Date End Date Cindy Miller, PAC [address] [place] [address] PCP - General Physician Diesel Stationary Engineer 01/22/22 Shawna Yip, MACHINE REBUILDER, THEATRICAL AGENT [address] [place] [address] Nurse Practitioner Advanced Practice Nurse 05/07/22 documented as of this encounter
--- OUTSIDE RECORDS SUMMARY | 2024-07-31 19:55 | XMS_ITS | Encounter Summary ---
Author Organization [facility] Address [address] [place] [address] Phone Care Team Providers Care Global Account Manager Name Role Phone Angela Cindy Matos PAC Primary Care Pro vider Shawna Yip WORKERS COMPENSATION COORDINATOR, JIG GRINDER Unavailable [phone]- [phone] Reason for Visit * Reason Comments Medication Refill Encounter Details Date Type Department Care Team (Late st Contact Info) Description 01/22/2022 Refill [facility] - Neurology - [place] [address] [place] [address] Frank Bowling MD [address] [place] [phone] Medication Refill Social History Tobacco Use Types [...] (Latest Contact Info) Description 08/02/2024 1:00 PM HR INTERN [facility] 1 [place] [address] Cindy Miller, PAC [address] [place] [address] Bhavya Rahman LCSW [address] [place] [address] Discharge Disposition: Discharged to home or Selfcare documented as of this encounter Visit Diagnoses Diagnosis Chronic migraine w/o aura w/o status migrainosus, not intractable Chronic migraine without aura, without mention of intractable migraine without mention of status migrainosus documented in this encounter Additional Health Concerns Infection Onset Date Last Indicated Resolved Time Respiratory Rule-Out 04/21/2024 04/21/2024 024 4:11 PM HR INTERN COVID - 19 04/21/2024 04/21/2024 04/21/2024 4:11 PM HR INTERN COVID - 19 06/09/2024 06/09/2024 06/10/2024 12:1 9 AM HR INTERN Assessment Noted Time PHQ-9 Depression Total Score: 2 01/23/20 22 4:00 PM CDT documented as of this encounter Care Teams Global Account Manager Relationship Specialty Start Date End Date Cindy Miller, PAC [address] [place] [address] PCP - General Physician Sieve Grader Tender 01/22/22 Shawna Yip APRN, JIG GRINDER [address] [place] [address] Nurse Practitioner Advanced Practice Nurse 05/07/22 documented as of this encounter
--- OUTSIDE RECORDS SUMMARY | 2024-07-31 19:56 | XMS_ITS | Encounter Summary ---
Author Organization [facility] Address [address] [place] [address] Phone Care Team Providers Care Certified Welding Inspector Name Role Phone Cindy Miller PAC Primary Care Pro vider Shawna Yip APRN, SURVEILLANCE OPERATOR Unavailable [phone]- [phone] Reason for Visit * Reason Comments Medication Refill Encounter Details Date Type Department Care Team (Late st Contact Info) Description 04/22/2024 [facility]ill [facility] - [place] [address] [place] [phone] Cindy Miller, PAC [address] [facility] [place] [address] Medication Refill Social History Tobacco Use Types Packs/Day Years Used Date Smoking Tobacco: Former Cigarettes Q uit: 01/28/2015 Smokeless Tobacco: Never Alcohol Use Standard Drinks/Week Comments No 0 (1 standard drink = 0.6 oz pur e alcohol) [facility] Utilities Answer Date Recorded In the past 12 months has [employer] electric, gas, oil, or water company threatened to shut off services in your home? Yes 08/03/2023 Social Connection and Isolation Panel [NHANES] A nswer Date Recorded In a typical week, how many times do you talk on the phone with family, friends, or neighbors? Once a week 08/03/2023 Frequency of Social Gatherings with Friends and Family Not on file 08/03/2023 Attends Mandaeism Services Not on file 08/03 Active Member [...] Total Score - Questions 1-9 7 01/13 [employer] of Occupat ional [facility] - Occupational Stress Questionnaire Answer Date [...] to sleep or slept in a senior care (including now)? No 08/03/2023 Education Answer Date [...] (Latest Contact Info) Description 08/02/2024 1:00 PM QUARRY PLUG AND FEATHER DRILLER Outpatient Clinic Visit [facility] [address] [place] [address] Cindy Miller, PAC [address] [place] [address] Bhavya Rahman, STAFF PHYSICIAN [address] [place] [address] Discharge Disposition: Discharged to home or Selfcare documented as of this encounter Visit Diagnoses Not on filedocumented in this encounter Additional Health Concerns Infection Onset Date Last Indicated Resolved Time COVID - 19 06/09/2024 06/09/2024 06/10/2024 12:1 9 AM QUARRY PLUG AND FEATHER DRILLER Assessment Noted Time PHQ-9 Depression Total Score: 7 01/27/20 23 3:00 PM CDT documented as of this encounter Care Teams Certified Welding Inspector Relationship Specialty Start Date End Date Cindy Miller, PAC [address] [place] [address] PCP - General Physician Coach Mechanic 01/22/22 Shawna Yip APRN, SURVEILLANCE OPERATOR [address] [place] [address] Nurse Practitioner Advanced Practice Nurse 05/07/22 documented as of this encounter
--- OUTSIDE RECORDS SUMMARY | 2024-07-31 19:56 | XMS_ITS | Encounter Summary ---
Author Organization [facility] Address [address] [place] [address] Phone Care Team Providers Care Software Design Manager Name Role Phone Provider, None Primary Care Provider Cindy Serrato PAC Primary Care Pro vider Shawna Yip SENIOR ENVIRONMENTAL TECHNICIAN, BOXER OPERATOR Unavailable [phone]- [phone] Reason for Visit * Reason Comments Medication Refill Encounter Details Date Type Department Care Team (Late st Contact Info) Description 10/26/2020 Refill [facility] - Neurology - [place] [address] [place] [address] Shawna Yip, SENIOR ENVIRONMENTAL TECHNICIAN, BOXER OPERATOR [address] [place] [address] Medication Refill Social History Tobacco Use Types [...] encounter Miscellaneous Notes * Telephone Encounter - Shawna Yip APN, HANG - 10/29/2020 8:17 AM CDT Signed refills documented in this encounter Plan of Treatment Upcoming Encounters Date Type Department Care Team (Latest Contact Info) Description 08/02/2024 1:00 PM WINDOW CLEANER Outpatient Clinic Visit [facility] 1 [place] [address] Cindy Miller, PAC [address] [place] [address] Bhavya Rahman, JOB DEVELOPER FOR DEAF ADULTS [address] [place] [address] Discharge Disposition: Discharged to home or Selfcare documented as of this encounter Visit Diagnoses Diagnosis Chronic migraine w/o aura w/o status migrainosus, not intractable Chronic migraine without aura, without mention of intractable migraine without mention of status migrainosus documented in this encounter Additional Health Concerns Infection Onset Date Last Indicated Resolved Time Respiratory Rule-Out 04/21/2024 04/21/2024 024 4:11 PM WINDOW CLEANER COVID - 19 04/21/2024 04/21/2024 04/21/2024 4:11 PM WINDOW CLEANER COVID - 19 06/09/2024 06/09/2024 06/10/2024 12:1 9 AM WINDOW CLEANER Assessment Noted Time PHQ-9 Depression Total Score: 0 03/12/20 18 3:00 PM CDT documented as of this encounter Care Teams Software Design Manager Relationship Specialty Start Date End Date Provider, None [place] PCP - General 07/05/20 01/21/22 Cindy Miller, PAC [address] [place] [address] PCP - General Physician Sander Portable Machine 01/22/22 Shawna Yip APRN, BOXER OPERATOR [address] [place] [address] Nurse Practitioner Advanced Practice Nurse 05/07/22 documented as of this encounter
--- OUTSIDE RECORDS SUMMARY | 2024-07-31 19:56 | XMS_ITS | Encounter Summary ---
Author Organization [facility] Address [address] [place] [address] Phone Care Team Providers Care Paper Control Clerk Name Role Phone Angela, Cindy Matos PAC Primary Care Pro vider Shawna Yip APRN, DIRECTOR SYSTEMS Unavailable [phone]- [phone] Reason for Visit * Reason Comments Medication Refill Encounter Details Date Type Department Care Team (Late st Contact Info) Description 07/31/2024 Refill [facility] - Neurology - [place] [address] [place] [phone] Shawna Yip, IMPLEMENTATION LEAD, DIRECTOR SYSTEMS [address] [place] [address] Medication Refill Social History Tobacco Use Types Packs/Day Years Used Date Smoking Tobacco: Former Cigarettes Q uit: 01/28/2015 Smokeless Tobacco: Never Alcohol Use Standard Drinks/Week Comments No 0 (1 standard drink = 0.6 oz pur e alcohol) [facility] Utilities Answer Date Recorded In the past 12 months has [employer] electric, gas, oil, or water company threatened to shut off services in your home? Yes 08/03/2023 Social Connection and Isolation Panel [NHANES] A nswer Date Recorded In a typical week, how many times do you talk on the phone with family, friends, or neighbors? Once a week 08/03/2023 Frequency of Social Gatherings with Friends and Family Not on file 08/03/2023 Attends Hoahaoism Services Not on file 08/03 Active Member [...] Score - Questions 1-9 7 01/13 [facility] - Occupational Stress Questionnaire Answer Date [...] place to sleep or slept in a group home (including now)? No 08/03/2023 Education Answer Date [...] (Latest Contact Info) Description 08/02/2024 1:00 PM MARKETING INTERN Outpatient Clinic Visit [facility] 1 [place] [address] Cindy Miller PAC [address] [place] [address] Bhavya Rahman, GROUND TRANSPORTATION OPERATOR [address] [place] [address] Discharge Disposition: Discharged to home or Selfcare documented as of this encounter Visit Diagnoses Diagnosis Chronic migraine w/o aura w/o status migrainosus, not intractable Chronic migraine without aura, without mention of intractable migraine without mention of status migrainosus documented in this encounter Additional Health Concerns Assessment Noted Time PHQ-9 Depression Total Score: 7 01/27/20 23 3:00 PM CDT documented as of this encounter Care Teams Paper Control Clerk Relationship Specialty Start Date End Date Cindy Miller PAC [address] [place] [address] PCP - General Physician Ultrasonic Tester 01/22/22 Shawna Yip APRN, DIRECTOR SYSTEMS [address] [place] [address] Nurse Practitioner Advanced Practice Nurse 05/07/22 documented as of this encounter
--- OUTSIDE RECORDS SUMMARY | 2024-07-31 19:56 | XMS_ITS | Encounter Summary ---
Author Organization [facility] Address [address] [place] [address] Phone Care Team Providers Care Cheesemaker Name Role Phone Cindy Miller [facility] Primary Care Pro vider Shawna Yip SPRAY MACHINE OPERATOR, SLIVER LAP MACHINE TENDER Unavailable [phone]- [phone] Reason for Visit * Reason Comments Medication Refill Encounter Details Date Type Department Care Team (Late st Contact Info) Description 04/11/2022 Refill [facility] - Neurology - [place] [address] [place] [phone] Shawna Yip, SPRAY MACHINE OPERATOR, SLIVER LAP MACHINE TENDER [address] [place] [address] Medication Refill Social History Tobacco Use Types [...] (Latest Contact Info) Description 08/02/2024 1:00 PM LICENSED CHEMICAL SPRAY TECHNICIAN [facility] [address] [place] [phone] Cindy Miller, PAC [address] [place] [address] Bhavya Rahman LCSW [address] [place] [address] Discharge Disposition: Discharged to home or Selfcare documented as of this encounter Visit Diagnoses Diagnosis Chronic migraine w/o aura w/o status migrainosus, not intractable Chronic migraine without aura, without mention of intractable migraine without mention of status migrainosus documented in this encounter Additional Health Concerns Infection Onset Date Last Indicated Resolved Time Respiratory Rule-Out 04/21/2024 04/21/2024 024 4:11 PM LICENSED CHEMICAL SPRAY TECHNICIAN COVID - 19 04/21/2024 04/21/2024 04/21/2024 4:11 PM LICENSED CHEMICAL SPRAY TECHNICIAN COVID - 19 06/09/2024 06/09/2024 06/10/2024 12:1 9 AM LICENSED CHEMICAL SPRAY TECHNICIAN Assessment Noted Time PHQ-9 Depression Total Score: 2 01/23/20 22 4:00 PM CDT documented as of this encounter Care Teams Cheesemaker Relationship Specialty Start Date End Date Cindy Miller, PAC [address] [place] [address] PCP - General Physician Software Support Engineer 01/22/22 Shawna Yip, SPRAY MACHINE OPERATOR, SLIVER LAP MACHINE TENDER [address] [place] [address] Nurse Practitioner Advanced Practice Nurse 05/07/22 documented as of this encounter
--- OUTSIDE RECORDS SUMMARY | 2024-07-31 19:56 | XMS_ITS | Encounter Summary ---
Author Organization [facility] Address [address] [place] [address] Phone Care Team Providers Care Mobile Equipment Operator Name Role Phone Cindy Miller [facility] Primary Care Pro vider Shawna Yip GROUP SEGMENT CONSULTANT, PLASTER MOLDER Unavailable [phone]- [phone] Reason for Visit * Reason Comments Medication Refill Encounter Details Date Type Department Care Team (Late st Contact Info) Description 07/16/2022 Refill [facility] - Neurology - [place] [employer] [address] [place] [phone] Shawna Yip, GROUP SEGMENT CONSULTANT, PLASTER MOLDER [address] [place] [address] Medication Refill Social History Tobacco Use Types [...] (Latest Contact Info) Description 08/02/2024 1:00 PM VEHICLE TRIMMER [facility]patient [facility] 1 [place] [address] Cindy Miller, PAC [address] [place] [address] Bhavya Rahman LCSW [address] [place] [address] Discharge Disposition: Discharged to home or Selfcare documented as of this encounter Visit Diagnoses Diagnosis Anxiety Anxiety state, unspecified documented in this encounter Additional Health Concerns Infection Onset Date Last Indicated Resolved Time Respiratory Rule-Out 04/21/2024 04/21/2024 024 4:11 PM VEHICLE TRIMMER COVID - 19 04/21/2024 04/21/2024 04/21/2024 4:11 PM VEHICLE TRIMMER COVID - 19 06/09/2024 06/09/2024 06/10/2024 12:1 9 AM VEHICLE TRIMMER Assessment Noted Time PHQ-9 Depression Total Score: 2 01/23/20 22 4:00 PM CDT documented as of this encounter Care Teams Mobile Equipment Operator Relationship Specialty Start Date End Date Cindy Miller, PAC [address] [place] [address] PCP - General Physician Hand Compositor 01/22/22 Shawna Yip APRN, PLASTER MOLDER [address] [place] [address] Nurse Practitioner Advanced Practice Nurse 05/07/22 documented as of this encounter
--- OUTSIDE RECORDS SUMMARY | 2024-07-31 19:56 | XMS_ITS | Clinical Summary ---
Author Organization [facility] Address [address] [place] [address] Phone Care Team Providers Care Counter Supply Worker Name Role Phone Cindy Miller Primary Care Pro vider Shawna Yip UNDERWATER TRAPPER, FOXING CUTTING MACHINE OPERATOR Unavailable [phone] Allergies Active Allergy Reactions Criticality Noted Date Comments Cephalosporins Hives 12/24/2017 Medications Erenumab-aooe (Aimovig) 140 MG/ML Solution Auto-injectorIn dications:Chron ic migraine w/o aura w/o status migrainosus, not intractable INJECT 1 ML SUBCUTANEOUSLY ONCE EVERY MONTH 1 mL 5 02/24/20 24 Active albuterol (Proventil HFA) 108 (90 Base) MCG/ACT Aerosol Solution take 2 Puffs by inhalation every 4 hours as needed for Wheezing. 18 g 04/26/20 24 Active methylPREDNISol one (MEDROL DOSPACK) 4 MG Tablet Therapy Pack Follow instructions on pack, take with food; Give one pack 1 Tablet 04/29/20 24 Active chlorhexidine (PERIDEX) 0.12 % Solution 15 mL by Swish & Spit route 2 times daily. 15 mL 05/16/20 24 Active ketorolac (TORADOL) 10 MG Tablet Take 1 Tablet by mouth every 6 hours as needed for Mild or more severe pain. 20 Tablet 06/10/20 24 Active Rizatriptan Benzoate 10 MG TabletIndicatio ns:Chronic migraine w/o aura w/o status migrainosus, not intractable Take 1 Tablet by mouth once as needed for Headaches. May repeat in 2 hours in needed 9 Tablet 2 07/10/19 25 Active escitalopram (LEXAPRO) 10 MG Tablet Take 2 Tablets by mouth daily. 90 Tablet 07/20/19 25 Active hydrOXYzine (ATARAX) 10 MG Tablet Take 15 mg by mouth every 6 hours as needed for Anxiety. Active HYDROXYZINE HCL PO Take by mouth. 025 Discontin ued(Dupli brandon Order) Rizatriptan Benzoate 10 MG TabletIndicatio ns:Chronic migraine w/o aura w/o status migrainosus, not intractable Take 1 Tablet by mouth once as needed for Headaches. May repeat in 2 hours in needed 9 Tablet 2 11/10/19 24 025 Discontin ued(Reord er) escitalopram (LEXAPRO) 10 MG Tablet Take 1 tablet by mouth once daily 90 Tablet 04/22/20 24 025 Discontin ued(Dose adjustmen t) Active Problems Problem Noted Date Diagnosed Date Non-compliance 04/21/2024 Overview (04/21/2024): Mammogram Colon CA screenings ACCOUNT TECHNICIAN care Anemia 01/22/2022 Chronic migraine w/o aura w/ o status migrainosus, not intractable 07/05/2020 History of PSVT (paroxysmal supraventricular tac hycardia) 07/14/2019 Idiopathic scoliosis of thoracolumbar spine 12/13 Hyperthyroidism 12/24/2017 Heart palpitations 12/24/2017 Urge and stress incontinence 12/24/2017 Anxiety 12/24/2017 Migraine with aura and witho ut status migrainosus, not intractable 12/24/2017 Encounters Date Type Department Care Team Description 07/31/2024 [facility] [place] [address] [place] [address] Shawna Yip APRN, FOXING CUTTING MACHINE OPERATOR Medication Refill 07/21/2024 Telephone [facility] - [place] [address] [place] [address] Cindy Miller, PAC Medication Refill 07/20/2024 9:30 AM TIRE MOLD ENGRAVER Office Visit [facility] Internal Medicine - [place] [address] [place] [address] Linus Jeter MD Generalized anxiety disorder (Primary Dx) Discharge Disposition: Discharged to home or Selfcare 07/20/2024 Travel 07/20/2024 Telephone [facility] Internal Medicine - [place] [address] [place] [address] Cindy Miller, PAC 07/08/2024 MyChart RX Renewal [facility] [address] [place] [address] Shawna Yip, UNDERWATER TRAPPER, FOXING CUTTING MACHINE OPERATOR Medication Renewal Reviewed 06/09/2024 10:16 PM TIRE MOLD ENGRAVER - 06/10/2024 1:50 AM TIRE MOLD ENGRAVER [facility] [address] [place] [address] Moisés Chau MD Acute nonspecific chest pain with low risk of coronary artery disease Discharge Disposition: Discharged to home or Selfcare 06/09/2024 Travel from Last 3 Months Immunizations Immunization Administration Dates Next Due Covid-19, Mrna, Lnp-s, Pf, 30 Mcg/0.3 Ml Dose (P fizer) 11/20/2020 Family History Medical History Relation Name Comments Alzheimer's Disease Father Stroke Father Relation Name Status Comments Father Mother blood clots Social History Tobacco Use Types Packs/Day Years Used Date Smoking Tobacco: Former Cigarettes Q uit: 01/28/2015 Smokeless Tobacco: Never Tobacco Cessation:Counseling Given: Not Answered Alcohol Use Standard Drinks/Week Comments No 0 (1 standard drink = 0.6 oz pur e alcohol) [facility] Utilities Answer Date Recorded In the past 12 months has [employer], gas, oil, or water Neighbor[employer]ly threatened to shut off services in your home? Yes 08/03/2023 Social Connection and Isolation Panel [NHANES] A nswer Date Recorded In a typical week, how many times do you talk on the phone with family, friends, or neighbors? Once a week 08/03/2023 Frequency of Social Gatherings with Friends and Family Not on file 08/03/2023 Attends Sikh Services Not on file 08/03 Active Member [...] Total Score - Questions 1-9 7 01/13 [facility] - Occupational Stress Questionnaire Answer Date Recorded [...] place to sleep or slept in a jail (including now)? No 08/03/2023 Education Answer Date [...] AM CDT Sexual Orientation Not on file Last Filed Vital Signs Vital Sign Reading Time Taken Comments Blood Pressure 118/70 07/20/2024 9:36 AM TIRE MOLD ENGRAVER Pulse 68 07/20/2024 9:16 AM TIRE MOLD ENGRAVER Temperature 36.1 C (97 F) 07/20/2024 9:16 AM TIRE MOLD ENGRAVER Respiratory Rate 16 06/10/2024 1:47 AM TIRE MOLD ENGRAVER Oxygen Saturation 97% 07/20/2024 9:16 AM TIRE MOLD ENGRAVER Inhaled Oxygen Concentration - - Weight 56.7 kg (125 lb) 06/09/2024 10:18 PM TIRE MOLD ENGRAVER Height 172.7 cm (5' 8 ) 06/09/2024 10:18 PM TIRE MOLD ENGRAVER Body Mass Index 19.01 06/09/2024 10:18 PM TIRE MOLD ENGRAVER Plan of Treatment Upcoming Encounters Date Type Department Care Team (Latest Contact Info) Description 08/02/2024 1:00 PM TIRE MOLD ENGRAVER Outpatient Clinic [facility] [address] [place] [address] Cindy Miller, PAC [address] [place] [address] Bhavya Rahman, TYPING TEACHER [address] [place] [address] Discharge Disposition: Discharged to home or Selfcare Health Maintenance Due Date Last Done Comments TdaP Immunization 1970 Hepatitis B Immunization (1 of 3 - 19+ 3-dose series) 12/10/1990 Colonoscopy 12/10/2016 Colorectal Cancer Screening 12/10/2016 Pap Smear 01/29/2021 01/29/2018 Cologuard 12/10/2021 Immunochemical Fecal Occult Blood 12/10/2021 Mammogram 12/10/2021 03/18/2018, 10/12/2015 Pneumococcal Immunization (5 0+ years) (1 of 1 - PCV) 12/10/2021 Zoster Immunization (1 of 2) 12/10/2021 Cervical Cancer Screening (CCS) 01/29/2023 HPV/Cotest 01/29/2023 01/29/2018 Influenza Immunization (#1) 2024 SARS-COV-2 Immunization (3 - season) 2024 11/20/2020, 10/30/2020 Respiratory Syncytial Virus (RSV) Immunization (Adult) (1 - 1-dose 75+ series) 12/10/2046 Discussion re Starting/Frequency of Mammograms Discontinued 08/10/2018, 03/18/2018, 10/12/2015 Hepatitis C Virus (HCV) Screening Completed 12/09/2018 Meningococcal Immunization (ACWY) Aged Out No longer eligible based on patient's age to complete this topic Rotavirus Immunization Aged Out No lo nger eligible based on patient's age to complete this topic Procedures Procedure Name Priority Date/Time Associated Diagnosis Comments XR CHEST SINGLE VIEW PORTABLE STAT 06/09/2024 11:52 PM TIRE MOLD ENGRAVER LACTIC ACID (LACTATE) STAT 06/09/2024 11:30 PM TIRE MOLD ENGRAVER RSV,SARS-COV-2,INFLU LUCIO A&B BY PCR STAT 06/09/2024 11:30 PM TIRE MOLD ENGRAVER CBC WITH AUTO DIFFERENTIAL STAT 06/09/2024 11:21 PM TIRE MOLD ENGRAVER D-DIMER STAT 06/09/2024 11:21 PM TIRE MOLD ENGRAVER CMP (COMPREHENSIVE METABOLIC PANEL) STAT 06/09/2024 11:21 PM TIRE MOLD ENGRAVER COMPLETE BLOOD COUNT (CBC) WITH DIFF STAT 06/09/2024 11:21 PM TIRE MOLD ENGRAVER TROPONIN I, HIGH SENSITIVITY (HSTRP) STAT 06/09/2024 11:21 PM TIRE MOLD ENGRAVER EKG 12 LEAD STAT 06/09/2024 10:19 PM TIRE MOLD ENGRAVER RHYTHM STRIP 06/09/2024 12:00 AM TIRE MOLD ENGRAVER EKG SCAN 06/09/2024 12:00 AM TIRE MOLD ENGRAVER HEPATITIS PANEL ACUTE (AHP) Routine 12/09/2018 10:33 AM CDT Encounter for assessment of STD exposure HUONG DIAG RIGHT UNILATERAL DIGITAL W CAD W AGUSTIN Routine 08/10/2018 3:39 PM TIRE MOLD ENGRAVER Breast mass, right HUONG SCREENING BILATERAL DIGITAL W CAD W AGUSTIN Routine 03/18/2018 9:17 AM CDT Breast cancer screening HUMAN PAPILLOMA VIRUS (HPV) Routine 01/29/2018 7:59 AM CDT Well woman exam with routine gynecological exam PATHOLOGY CYTOLOGY ACCOUNT TECHNICIAN Routine 01/29/2018 7:59 AM CDT Well woman exam with routine gynecological exam from Last 3 Months or Most Recently Relevant to Health Maintenance Results * XR CHEST SINGLE VIEW PORTABLE (06/09/2024 11:52 PM TIRE MOLD ENGRAVER) Anatomical Region Laterality Modality Chest N/A Computed Radiogr aphy 06/10/2024 12:1 7 AM TIRE MOLD ENGRAVER Impressions 06/10/2024 12:19 AM TIRE MOLD ENGRAVER IMPRESSION: No acute cardiopulmonary abnormality. Narrative 06/10/2024 12:19 AM TIRE MOLD ENGRAVER EXAM DESCRIPTION: XR CHEST SINGLE VIEW PORTABLE REASON FOR STUDY: Chest pain cough today TECHNIQUE: 1 radiographic view(s) of the chest. COMPARISON: 04/26/2024 FINDINGS: LUNGS: No focal opacity, pleural effusion, or pneumothorax. HEART/MEDIASTINUM: Cardiac silhouette normal in size. Mediastinal and hilar contours appear normal. LINES/TUBES: None. BONES: No acute osseous abnormality. Thoracic scoliosis. THIS IS AN ELECTRONICALLY VERIFIED FINAL REPORT 06/10/2024 12:17 AM - Electronically signed by Hiren Wilson M.D. KT: KT Report ID: [id number] Reading Location: [id number] Procedure Note Hiren Wilson MD - 06/10/2024 EXAM DESCRIPTION: XR CHEST SINGLE VIEW PORTABLE REASON FOR STUDY: Chest pain cough today TECHNIQUE: 1 radiographic view(s) of the chest. COMPARISON: 04/26/2024 FINDINGS: LUNGS: No focal opacity, pleural effusion, or pneumothorax. HEART/MEDIASTINUM: Cardiac silhouette normal in size. Mediastinal and hilar contours appear normal. LINES/TUBES: None. BONES: No acute osseous abnormality. Thoracic scoliosis. THIS IS AN ELECTRONICALLY VERIFIED FINAL REPORT 06/10/2024 12:17 AM - Electronically signed by Hiren Wilson M.D. KT: KT Report ID: [id number] Reading Location: [id number] IMPRESSION: No acute cardiopulmonary abnormality. Moisés Chau MD IMG DIAGNOSTIC ORDERABLES Final Result * RSV,SARS-COV-2,INFLUENZA A&B BY PCR (06/09/2024 11:30 PM TIRE MOLD ENGRAVER) FLU A Negative Negative, Error 06/10/2024 12:19 AM TIRE MOLD ENGRAVER [facility] FLU B Negative Negative 06/10/2024 12:19 AM TIRE MOLD ENGRAVER [facility] RESP SYNC VIRUS Negative Negative 12:19 AM TIRE MOLD ENGRAVER [facility] SARSCOV2 NOT DETECTED (Reference Range for this test is Not Detected) 06/10/2024 12:19 AM TIRE MOLD ENGRAVER [facility] Comment:This test was perfor med by a Reverse Cad Librarian PCR Method. Swab NASOPHARYNGEAL SWAB / Unknown Non-Phlebotomy Collection / Unknown 06/09/2024 11:30 PM TIRE MOLD ENGRAVER 06/09/2024 11:39 PM TIRE MOLD ENGRAVER Narrative [facility] - 06/10/2024 12:19 AM TIRE MOLD ENGRAVER This test has not been FDA cleared or approved; the test has been authorized by FDA under an Emergency Use Authorization (EUA) for use by laboratories certified under the CLIA that meet the requirements to perform moderate, high or waived complexity tests. Authorized Fact Sheets about this test for providers and patients are available at: https://www.fda.gov/medical-devices/mkwdysfyi-bvuxsisjze-ielmisk-devices/emergen -us e-authorizations Moisés Chau MD MICROBIOLOGY - GENERAL OR DERABLES Final Result Performing Organization Address City/[facility]/ZIP Co de Phone Number [facility] [address] [place] [address] * Lactic Acid (Lactate) (06/09/2024 11:30 PM TIRE MOLD ENGRAVER) LACTIC ACID 1.0 0.7 - 2.0 mmol/L 06/09/2024 11:58 PM TIRE MOLD ENGRAVER [facility] Blood Venipuncture / Unknown 06/09/2024 11:30 PM TIRE MOLD ENGRAVER 06/09/2024 11:39 PM TIRE MOLD ENGRAVER Moisés Chau MD CHEMISTRY ORDERABLES Asmita l Result Performing Organization Address City/[facility]/ZIP Co de Phone Number [facility] [address] [place] [address] * TROPONIN I, HIGH SENSITIVITY (HSTRP) (06/09/2024 11:21 PM TIRE MOLD ENGRAVER) TROPONIN I, HIGH SENSITIVITY- [facility] 3 <=14 ng/L 06/10/2024 12:06 AM TIRE MOLD ENGRAVER [facility] Comment: High-sensitivity troponin I results are reported in ng/L making the result appear to be 1,000 times higher than the contemporary troponin I value which is reported in ng/ml. Results from [facility]. Blood Venipuncture / Unknown 06/09/2024 11:21 PM TIRE MOLD ENGRAVER 06/09/2024 11:39 PM TIRE MOLD ENGRAVER Moisés Chau MD CHEMISTRY ORDERABLES Asmita ean Result [facility] [address] [place] [address] * (ABNORMAL) CBC with Auto Differential (06/09/2024 11:21 PM TIRE MOLD ENGRAVER) WBC 10.50 4.00 - 12.00 10(3)/mcL 06/09/2024 11:42 PM TIRE MOLD ENGRAVER [facility] RBC 4.07 3.80 - 5.30 10(6)/mcL 06/09/2024 11:42 PM [facility] HEMOGLOBIN (HGB) 12.8 12.0 - 15.8 g/dL 06/09/2024 11:42 PM TIRE MOLD ENGRAVER [facility] HEMATOCRIT (HCT) 38.3 36.0 - 47.0 % 06/09/2024 11:42 PM TIRE MOLD ENGRAVER [facility] MCV 94.1 82.0 - 96.0 fL 06/09/2024 11:42 PM [facility] MCH 31.4 26.0 - 34.0 pg 06/09/2024 11:42 PM [facility] MCHC 33.4 31.0 - 36.0 g/dL 06/09/2024 11:42 PM TIRE MOLD ENGRAVER [facility] PLATELET COUNT 318 140 - 440 10(3)/mcL 06/09/2024 11:42 PM [facility] RDW 11.6(L) 11.8 - 15.5 % 06/09/2024 11:42 PM [facility] MPV 10.9 9.7 - 12.4 fL 06/09/2024 11:42 PM [facility] NEUTROPHILS 58.7 47.0 - 73.0 % 06/09/2024 11:42 PM TIRE MOLD ENGRAVER [facility] LYMPHOCYTES 26.6 18.0 - 42.0 % 06/09/2024 11:42 PM TIRE MOLD ENGRAVER [facility] MONOCYTES 6.8 4.0 - 12.0 % 06/09/2024 11:42 PM [facility] EOSINOPHILS 6.9(H) 0.0 - 5.0 % 06/09/2024 11:42 PM [facility] BASOPHILS 1.0 0.0 - 1.0 % 06/09/2024 11:42 PM TIRE MOLD ENGRAVER [facility] ABSOLUTE NEUTROPHILS 6.18 1.60 - 7.70 10(3)/[facility] 06/09/2024 11:42 PM [facility] ABSOLUTE LYMPHOCYTES 2.79 1.30 - 3.20 10(3)/[facility] 06/09/2024 11:42 PM [facility] ABSOLUTE MONOCYTES 0.71 0.20 - 1.00 10(3)/[facility] 06/09/2024 11:42 PM [facility] ABSOLUTE EOSINOPHIL 0.72(H) 0.00 - 0.40 10(3)/[facility] 06/09/2024 11:42 PM [facility] ABSOLUTE BASOPHILS 0.10 0.00 - 0.10 10(3)/[facility] 06/09/2024 11:42 PM [facility] NRBC PER 100 WBC 0 06/09/20 11:42 PM [facility] Blood Venipuncture / Unknown 06/09/2024 11:21 PM TIRE MOLD ENGRAVER 06/09/2024 11:39 PM TIRE MOLD ENGRAVER us Moisés Chau MD HEMATOLOGY ORDERABLES Fin al Result [facility] [address] [place] [address] * D-Dimer (06/09/2024 11:21 PM TIRE MOLD ENGRAVER) D DIMER 0.39 <0.50 mcg/mL FEU 06/09/2024 11:56 PM [facility] Blood Venipuncture / Unknown 06/09/2024 11:21 PM TIRE MOLD ENGRAVER 06/09/2024 11:39 PM TIRE MOLD ENGRAVER Narrative [facility] - 06/09/2024 11:56 PM TIRE MOLD ENGRAVER The FDA has approved this method to exclude the diagnosis of DVT and/or PE at the cutoff value of <0.50 mcg/mL FEU. us Moisés Chau MD HEMATOLOGY ORDERABLES Fin al Result [facility] [address] [place] [address] * (ABNORMAL) CMP (Comprehensive Metabolic Panel) (06/09/2024 11:21 PM TIRE MOLD ENGRAVER) SODIUM 141 136 - 145 mmol/L 06/10/2024 12:03 AM [facility] POTASSIUM 3.4(L) 3.5 - 5.1 mmol/L 06/10/2024 12:03 AM [facility] CHLORIDE 105 98 - 107 mmol/L 06/10/2024 12:03 AM [facility] CO2, VENOUS 25 22 - 30 mmol/L 06/10/2024 12:03 AM [facility] ANION GAP 14.4 <18.0 mmol/L 06/10/2024 12:03 AM [facility] GLUCOSE 98 70 - 99 mg/dL 06/10/2024 12:03 AM [facility] BUN 10 10 - 20 mg/dL 06/10/2024 12:03 AM [facility] CREATININE, BLOOD 0.89 0.60 - 1.00 mg/dL 06/10/2024 12:03 AM [facility] BUN/CREATININE RATIO 11(L) 12 - 20 ratio 06/10/2024 12:03 AM [facility] TOTAL PROTEIN 7.1 6.3 - 8.2 g/dL 06/10/2024 12:03 AM [facility] ALBUMIN 4.4 3.5 - 5.0 g/dL 06/10/2024 12:03 AM [facility] A/G RATIO 1.6 1.0 - 2.2 06/10/2024 12:03 AM [facility] CALCIUM 9.8 8.7 - 10.5 mg/dL 06/10/2024 12:03 AM [facility] T BILI 0.3 0.2 - 1.2 mg/dL 06/10/2024 12:03 AM [facility] SGOT (AST) 18 5 - 34 U/L 06/10/2024 12:03 AM [facility] SGPT (ALT) 15 0 - 55 U/L 06/10/2024 12:03 AM [facility] ALKALINE PHOSPHATASE 53 40 - 150 U/L 06/10/2024 12:03 AM [facility] GFR, ESTIMATED >60 >=60 06/10/2024 12:03 AM [facility] Comment: Creatinine Clearance is the preferred criteria for selecting drug dose adjustments in renally impaired patients. The GFR is provided as additional pertinent clinical information. GFR is reported in mL/min/1.73 sq m. Calculation based on the Chronic Kidney Disease Epidemiology Collaboration (CKD- EPI) equation refit without adjustment for race. GFR, EST. >60 >=60 024 12:03 AM [facility] GFR, EST. NONAFRICAN >60 >=60 06/10/2024 12:03 AM [facility] Blood Venipuncture / Unknown 06/09/2024 11:21 PM TIRE MOLD ENGRAVER 06/09/2024 11:39 PM TIRE MOLD ENGRAVER us Moisés Chau MD CHEMISTRY ORDERABLES Asmita mckoy Result [facility] [address] [place] [address] * EKG 12 LEAD (06/09/2024 10:19 PM TIRE MOLD ENGRAVER) Ventricular Rate 61 BPM EXTERNAL EKG Atrial Rate 61 BPM EXTERNAL EKG P-R Interval 124 ms EXTERNAL EKG QRS Duration 78 ms EXTERNAL EKG Q-T Duration 428 ms EXTERNAL EKG QTC CALCULATION 430 ms EXTERNAL EKG P [place] 74 degrees EXTERNAL EKG R [place] 60 degrees EXTERNAL EKG T [place] 47 degrees EXTERNAL EKG 06/09/2024 10:1 9 PM TIRE MOLD ENGRAVER Impressions EXTERNAL EKG - 06/15/2024 11:12 AM TIRE MOLD ENGRAVER Normal sinus rhythm Junctional ST depression, probably normal Borderline ECG When compared with ECG of 26-APR-2024 17:35, No significant change was found Confirmed by ARIANA MORALES ([id number]) on 06/15/2024 11:12:11 AM Narrative Procedure Note Ariana Morales MD - 06/15/2024 IMPRESSION: Normal sinus rhythm Junctional ST depression, probably normal Borderline ECG When compared with ECG of 26-APR-2024 17:35, No significant change was found Confirmed by ARIANA MORALES ([id number]) on 06/15/2024 11:12:11 AM Moisés Chau MD IMG ECG ORDERABLES Final Result Performing Organization Address City/[facility]/ZIP Co de Phone Number EXTERNAL EKG * RHYTHM STRIP (06/09/2024 12:00 AM TIRE MOLD ENGRAVER) 06/09/2024 us Provider Scan IMG ECG ORDERABLES Final Result RESULTING AGENCY * EKG SCAN (06/09/2024 12:00 AM TIRE MOLD ENGRAVER) 06/09/2024 us Provider Scan IMG ECG ORDERABLES Final Result RESULTING AGENCY * HEPATITIS PANEL ACUTE (AHP) (12/09/2018 10:33 AM CDT) HEPATITIS A IGM ANTIBODY NON DETECTED NON DETECTED 12/09/2018 10:20 PM CDT [facility] Comment: IGM Antibodies to HAV not detected. Does not exclude early acute or recovered HAV infection. HEP B CORE AB (IGM) NON DETECTED NON DETECTED 12/09/2018 10:20 PM CDT [facility] Comment: IGM anti-HBC not detected. Does not exclude the possibility of exposure to or infection with HBV. HEPATITIS B SURFACE ANTIGEN NON DETECTED NON DETECTED 12/09/2018 10:20 PM CDT [facility] Comment: A nonreactive test result does not exclude the possibility of exposure to or infection with Hepatitis B virus. A nonreactive test result in individuals with prior exposure to hepatitis B may be due to antigen levels below the detection limit of this assay or lack of antigen reactivity to the antibodies in this assay. hepatitis C antibody 0.15 <1 S/CO 12/09/2018 10:20 PM CDT [facility] Comment: Signal/Cutoff ratio < 0.79 is Nondetected Signal/Cutoff ratio 0.80-0.99 is Grayzone Signal/Cutoff ratio > 0.99 is Detected Supplemental assays are recommended if signal/cutoff ratio is >/=1.00. Signal/cutoff ratio result >/= 5.00 is 97% predictive of positivity for recombinant immunoblot assay (RIBA) and will be reported to the [place] Department of Public Health as required. Blood specimen (specimen) Venipuncture / Unknown 12/09/2018 10:33 AM CDT 12/09/2018 10:33 AM CDT us Nina Yates PAC HEMATOLOGY ORDERABLES Fin al Result [facility] [address] [place] [address], [place] * HUONG DIAG RIGHT UNILATERAL DIGITAL W CAD W AGUSTIN (08/10/2018 3:39 PM TIRE MOLD ENGRAVER) Anatomical Region Laterality Modality breast Right Mammography 08/10/2018 2:59 PM TIRE MOLD ENGRAVER Narrative 08/11/2018 5:55 AM TIRE MOLD ENGRAVER - HUONG DIAG RIGHT UNILATERAL DIGITAL W CAD W AGUSTIN - HUONG US BREAST LIMITED RT UNILATERAL RIGHT DIGITAL DIAGNOSTIC MAMMOGRAM WITH CAD AND TARGETED RIGHT ULTRASOUND WITH MEDIOLATERAL OBLIQUE CRANIOCAUDAL: 08/10/2018 The study was acquired using digital technology and interpreted from soft copy. Current study was also evaluated with ICAD version 7.2. CLINICAL: Patient reports a palpable lump right breast at 9-10 o'clock position for one month. She stated it was the size of a walnut but now seems pea sized. No personal history of cancer. No family history of breast cancer. COMPARISONS: Comparison is made to exams dated: 03/18/2018 [facility] and 10/12/2015 [facility]. BREAST TISSUE:The tissue of the right breast is heterogeneously dense. This may lower the sensitivity of mammography. FINDINGS: RIGHT DIAGNOSTIC MAMMOGRAM: No significant masses, calcifications, or other findings are seen in the breast on the mammogram. Further evaluation was obtained with sonography. TARGETED RIGHT BREAST ULTRASOUND: At the palpable area of concern at the 9 o'clock position of the right breast, 7 cm from the nipple, there is a 1.2 cm simple cyst with an adjacent 8 mm cyst. No suspicious lesions are seen. IMPRESSION: OVERALL STUDY BIRADS: 2 BENIGN There is no mammographic or targeted sonographic evidence of malignancy. Cysts in the right breast correspond to the palpable area of concern. Return to annual mammogram screening schedule is recommended. The patient has been or will be contacted. Electronically signed by: Roberto Worley M.D. ll/:08/10/2018 15:54:47 County Tax Assessor: Markos Mclaughlin RT(R)(M), [facility] letter sent: Normal Exam Reading location: [place] OVERALL STUDY BIRADS: 2 Benign Procedure Note Roberto Worley MD - 08/11/2018 - HUONG DIAG RIGHT UNILATERAL DIGITAL W CAD W AGUSTIN - HUONG US BREAST LIMITED RT UNILATERAL RIGHT DIGITAL DIAGNOSTIC MAMMOGRAM WITH CAD AND TARGETED RIGHT ULTRASOUND WITH MEDIOLATERAL OBLIQUE CRANIOCAUDAL: 08/10/2018 The study was acquired using digital technology and interpreted from soft copy. Current study was also evaluated with ICAD version 7.2. CLINICAL: Patient reports a palpable lump right breast at 9-10 o'clock position for one month. She stated it was the size of a walnut but now seems pea sized. No personal history of cancer. No family history of breast cancer. COMPARISONS: Comparison is made to exams dated: 03/18/2018 [facility] and 10/12/2015 [facility]. BREAST TISSUE:The tissue of the right breast is heterogeneously dense. This may lower the sensitivity of mammography. FINDINGS: RIGHT DIAGNOSTIC MAMMOGRAM: No significant masses, calcifications, or other findings are seen in the breast on the mammogram. Further evaluation was obtained with sonography. TARGETED RIGHT BREAST ULTRASOUND: At the palpable area of concern at the 9 o'clock position of the right breast, 7 cm from the nipple, there is a 1.2 cm simple cyst with an adjacent 8 mm cyst. No suspicious lesions are seen. IMPRESSION: OVERALL STUDY BIRADS: 2 BENIGN There is no mammographic or targeted sonographic evidence of malignancy. Cysts in the right breast correspond to the palpable area of concern. Return to annual mammogram screening schedule is recommended. The patient has been or will be contacted. Electronically signed by: Roberto Worley M.D. ll/:08/10/2018 15:54:47 County Tax Assessor: Markos WHITAKER(R)(M), [facility] letter sent: Normal Exam Reading location: [place] OVERALL STUDY BIRADS: 2 Benign Nina Yates [facility] IMG MAMMO ORDERABLES Asmita l Result * HUONG SCREENING BILATERAL DIGITAL W CAD W AGUSTIN (03/18/2018 9:17 AM CDT) Anatomical Region Laterality Modality breast Bilateral Mammography 03/18/2018 8:39 AM CDT Narrative 03/19/2018 12:27 PM CDT - HUONG SCREENING BILATERAL DIGITAL W CAD W AGUSTIN BILATERAL DIGITAL SCREENING MAMMOGRAM 3D/2D WITH CAD WITH MEDIOLATERAL OBLIQUE CRANIOCAUDAL: 03/18/2018 The study was acquired using digital technology and interpreted from soft copy. Current study was also evaluated with ICAD version 7.2. CLINICAL: Routine screening. Patient has scoliosis and has limited range of motion in her cervical spine. Right crainocaudal and left mediolateral oblique were repeated due to motion. Right mediolateral was repeated in an attempt to obtain more tissue. Patient has no complaints. No personal history of cancer. No family history of breast cancer. COMPARISONS: Comparison is made to exam dated: 10/12/2015 [facility]. BREAST TISSUE:The tissue of both breasts is heterogeneously dense. This may lower the sensitivity of mammography. FINDINGS: No significant masses, calcifications, or other findings are seen in either breast. There has been no significant interval change. IMPRESSION: BI-RAD 1 NEGATIVE There is no mammographic evidence of malignancy. A 1 year screening mammogram is recommended. The patient has been or will be contacted. The patient will be entered into a reminder system with a target due date of 1 year for her next screening exam. Electronically signed by: Roberto rodriguez/tip:03/19/2018 11:18:04 County Tax Assessor: Markos FIGUEREDO)([place]), [facility] letter sent: Normal Exam Reading location: [facility] BI-RADS: 1 Negative Procedure Note Roberto Worley MD - 03/19/2018 - HUONG SCREENING BILATERAL DIGITAL W CAD W AGUSTIN BILATERAL DIGITAL SCREENING MAMMOGRAM 3D/2D WITH CAD WITH MEDIOLATERAL OBLIQUE CRANIOCAUDAL: 03/18/2018 The study was acquired using digital technology and interpreted from soft copy. Current study was also evaluated with ICAD version 7.2. CLINICAL: Routine screening. Patient has scoliosis and has limited range of motion in her cervical spine. Right crainocaudal and left mediolateral oblique were repeated due to motion. Right mediolateral was repeated in an attempt to obtain more tissue. Patient has no complaints. No personal history of cancer. No family history of breast cancer. COMPARISONS: Comparison is made to exam dated: 10/12/2015 [facility]. BREAST TISSUE:The tissue of both breasts is heterogeneously dense. This may lower the sensitivity of mammography. FINDINGS: No significant masses, calcifications, or other findings are seen in either breast. There has been no significant interval change. IMPRESSION: BI-RAD 1 NEGATIVE There is no mammographic evidence of malignancy. A 1 year screening mammogram is recommended. The patient has been or will be contacted. The patient will be entered into a reminder system with a target due date of 1 year for her next screening exam. Electronically signed by: Roberto rodriguez/tip:03/19/2018 11:18:04 County Tax Assessor: Markos FIGUEREDO)([place]), [facility] letter sent: Normal Exam Reading location: [facility] BI-RADS: 1 Negative Nina EVANS IMG MAMMO ORDERABLES Asmita l Result * PATHOLOGY CYTOLOGY ACCOUNT TECHNICIAN (01/29/2018 7:59 AM CDT) SPECIMEN ADEQUACY Satisfactory for evaluation. Endocervical cells present. 02/19/2018 10:49 AM CDT [facility] DESCRIPTIVE DIAGNOSIS Negative for intraepithelial lesions. No dysplastic cells present. 02/19/2018 10:49 AM CDT [facility] MATED EXAMINATION Analysis of this sample has been assisted by an automated imaging and review system ([employer] Imaging System, [employer], [place], [place]). This case is further evaluated and finalized by a cobol engineer and/or pathologist. 02/19/2018 10:49 AM CDT [facility] DISCLAIMER The PAP smear is a screening test designed to detect cancerous or precancerous cells of the uterine cervix. It is one of the best means available for detection of cervical cancer but still carries an inherent false-negative rate. The consequences of a false-negative PAP result can be minimized by adhering to current screening guidelines. The following are general guidelines recommended by the ACS, ASCP, ASCCP, and ACOG: PAP testing is recommended every three years for women 21-29, Co-Testing , a PAP test in conjunction with an HPV (Human Papillomavirus) test for women ages 30-65, and no PAP or HPV testing for women under the age of 21 or older than 65 unless clinically indicated. 02/19/2018 10:49 AM CDT [facility] Case Report Gynecologic Cytology Report Case: [id number] Authorizing Provider: Nina Yates PAC Collected: 01/29/2018 07:59 AM Ordering Location: [facility] Received: 01/29/2018 07:59 AM [facility] Screen: Tanya Fan Specimen: TP Screen, CERVIX/ENDOCERVIX 02/19/2018 10:49 AM CDT [facility] HPV Reflex if ASCUS? Yes 02/19/2018 10:49 AM CDT [facility] Specimen of unknown material (specimen) (Cervix/Endocerv ix) Non-Phlebotomy Collection / Unknown 01/29/2018 7:59 AM CDT 01/29/2018 7:59 AM CDT us Nina June Yates PAC PATHOLOGY/CYTOLOGY ORDERA BLES Final Result [facility] [address] [place] [address], * (ABNORMAL) HUMAN PAPILLOMA VIRUS (HPV) (01/29/2018 7:59 AM CDT) HPV OTHER HIGH RISK TYPES, PCR POSITIVE(A) NEGATIVE 02/04/2018 7:06 AM CDT [facility] Comment: Positive for one or more of the following Other High HPV types: 31, 33, 35, 39, 45, 51, 52, 56, 58, 59, 66, and 68. False-positive results have been reported with molecular assays. If these positive results are discordant with clinical/cytohistologic findings, repeat testing may be considered after an appropriate interval. HPV TYPE 16 NEGATIVE NEGATIVE 02/04/2018 7:06 AM CDT [facility] Comment: A negative high-risk HPV result does not exclude the possibility of future cytologic HSIL or underlying CIN2-3 or cancer. The presence of PCR inhibitors may cause false negative or invalid results. If concentrations of whole blood in the sample exceed 1.5% (dark red or brown coloration) in PreservCyt solution, there is a likelihood of obtaining a false-negative result. HPV TYPE 18 NEGATIVE NEGATIVE 02/04/2018 7:06 AM CDT [facility] Comment: A negative high-risk HPV result does not exclude the possibility of future cytologic HSIL or underlying CIN2-3 or cancer. The presence of PCR inhibitors may cause false negative or invalid results. If concentrations of whole blood in the sample exceed 1.5% (dark red or brown coloration) in PreservCyt solution, there is a likelihood of obtaining a false-negative result. Specimen of unknown material (specimen) Non-Phlebotomy Collection / Unknown 01/29/2018 7:59 AM CDT 01/29/2018 7:59 AM CDT Narrative [facility] - 02/04/2018 7:06 AM CDT Performed by Real-Time Polymerase Chain Reaction (PCR) on the Monica Herrera 4800. This assay has been validated for use with post-aliquot samples from the [employer] T5000 processor. us Nina Yates PAC LAB SEND OUTS Final Res ult [facility] [address] [place] [address], from Last 3 Months or Most Recently Relevant to Health Maintenance [place] [address] Care Teams Counter Supply Worker Relationship Specialty Start Date End Date Cindy Miller, PAC [address] [place] [address] PCP - General Physician Print Developer 01/22/22 Shawna Yip, UNDERWATER TRAPPER, FOXING CUTTING MACHINE OPERATOR [address] [place] [address] Nurse Practitioner Advanced Practice Nurse 05/07/22
[2024-07-31 20:07] VITALS: BP 132/95; PULSE 106; RESP 16; TEMP 37; O2SAT 100
--- NOTE | 2024-07-31 20:34 | ED_ITS ---
HPI - General Adult General Chief complaint: Upper Respiratory Infection Stated complaint: Chest Tightness/Cough Source: patient Mode of arrival: ambulatory Limitations: no limitations History of Present Illness HPI narrative: Patient presents for evaluation of anxiety. She indicates she and her got into a verbal argument today. It made her feel short of breath. She has had the symptoms in the past and has been evaluated by her primary care provider in emergency room provider several times. All of her diagnostic testing has been negative. She denies any chest pain. No SI, HI, AH, VH. She has a prescription for Vistaril. She did not try taking it. She would simply like to go home and get in bed to go to sleep for the night. She has her 1st counseling appointment on Thursday of this week. Some other argument stem around the fact that she smokes marijuana and her quit. Related Data Home Medications ?Medication ?Instructions ?Recorded ?Confirmed ?Last Taken ?Type escitalopram oxalate 10 mg tablet 10 mg PO DAILY 02/14/24 02/14/24 Unknown History albuterol sulfate 90 mcg/actuation inhalation 07/31/24 Unknown History aerosol inhaler erenumab-aooe 140 mg/mL mg subcut 07/31/24 Unknown History subcutaneous auto-injector (Aimovig Autoinjector) hydroxyzine HCl 10 mg tablet mg 07/31/24 Unknown History rizatriptan 10 mg tablet mg 07/31/24 Unknown History Allergies Allergy/AdvReac Type Severity Reaction Status Date / Time cefprozil Allergy Unknown Hives Verified 07/31/24 20:04 Cephalosporins Allergy Unknown Rash Verified 07/31/24 20:04 Review of Systems Review of Systems: CONSTITUTIONAL: Denies fever, chills, or sweats. EYES: Denies visual changes, redness, or discharge. ENT: Denies rhinorrhea, congestion, sore throat, or otalgia. CARDIOVASCULAR: Denies chest pain, palpitations, or edema. RESPIRATORY: Reports mild shortness of breath. Denies cough. GASTROINTESTINAL: Denies abdominal pain, nausea, vomiting, or diarrhea. GENITOURINARY: Denies dysuria or hematuria. SKIN: Denies rash or itching. MUSCULOSKELETAL: Denies back pain, joint pain, or myalgia. NEUROLOGIC: Denies headache, numbness, dizziness, or weakness. PSYCHIATRIC: Reports anxiety. Denies depression. COUNT INCLUDES THE [facility] Past Medical History Medical History (Updated 07/31/24 @ 20:37 by SUSU NievesP, ) Anxiety Surgical History Surgical History History of oophorectomy History of tubal ligation Family History Family History Father Cerebrovascular accident Family history of Alzheimer's disease, Onset Age: 78 Grandparent Cerebrovascular accident Family history of malignant neoplasm Other Family history of blood dyscrasia Family history of pulmonary embolism Social History Social History Smoking status: Former smoker Tobacco type: e-cigarettes/vaping Smoking end date: 06/15/12 Alcohol intake: never Substance use: current Substance use type: marijuana Gender identity (if verbalized by the patient): Female Spiritual care concerns: No Exam Narrative: GENERAL: Well-appearing, well-nourished, and in no acute distress. HEAD: Normocephalic, atraumatic. EYES: PERRLA and EOMI. ENT: Nares clear, no rhinorrhea or epistaxis. Mucous membranes moist. Oropharynx without tonsillar hypertrophy exudate or other lesions. Bilateral TMs pearly herzog nonbulging NECK: Supple. No adenopathy or masses. No carotid bruits or JVD CHEST: Clear to auscultation. No respiratory distress. No wheezes rales or rhonchi HEART: Regular rate and rhythm. No murmur heard. Normal peripheral pulses. ABDOMEN: Soft, nontender, nondistended, normal active bowel sounds. EXTREMITIES: Normal range of motion. No edema. SKIN: Warm, dry, no rash. NEURO: No focal deficits. Alert and oriented x3. PSYCH:Anxious. Acting as though she is crying but there are no tears present Course Course Emergency Course: This is a 53-year-old female who presented for evaluation of anxiety. By the time I evaluated her she in the nurse had ordered a heated discussion and patient states she feels better. She has a history of anxiety and this is similar. She has a prescription for hydroxyzine at home. She will go home and take the medication. She does not feel she is in any imminent danger for safety be going home. She denies any acute psychotic features. She should go to her counseling appointment on Thursday and go to the emergency department if she has any SI, HI, AH, VH. Patient verbalized understanding and is in agreement with plan care. Level of Care: Express Care Visit Vital Signs Vital signs: Vital Signs Temperature 37.0 C 07/31/24 20:07 Pulse Rate 106 H 07/31/24 20:07 Respiratory Rate 16 07/31/24 20:07 Blood Pressure 132/95 H 07/31/24 20:07 Pulse Oximetry 100 07/31/24 20:07 Oxygen Delivery Room Air 07/31/24 20:07 Temperature 37.0 C 07/31/24 20:07 Pulse Rate 106 H 07/31/24 20:07 Respiratory Rate 16 07/31/24 20:07 Blood Pressure 132/95 H 07/31/24 20:07 Pulse Oximetry 100 07/31/24 20:07 Oxygen Delivery Room Air 07/31/24 20:07 Medical Decision Making Vital Signs Vital Signs: Vital Signs Temperature 37.0 C 07/31/24 20:07 Pulse Rate 106 H 07/31/24 20:07 Respiratory Rate 16 07/31/24 20:07 Blood Pressure 132/95 H 07/31/24 20:07 Pulse Oximetry 100 07/31/24 20:07 Oxygen Delivery Room Air 07/31/24 20:07 Temperature 37.0 C 07/31/24 20:07 Pulse Rate 106 H 07/31/24 20:07 Respiratory Rate 16 07/31/24 20:07 Blood Pressure 132/95 H 07/31/24 20:07 Pulse Oximetry 100 07/31/24 20:07 Oxygen Delivery Room Air 07/31/24 20:07 Discharge Plan Discharge Clinical Impression: Anxiety Patient Disposition: Home, Self-Care Condition: Stable Instructions: Antibiotic Form, Anxiety (ED) Patient Language: Upper Sorbian Prescriptions: No Action rizatriptan 10 mg tablet albuterol sulfate 90 mcg/actuation HFA aerosol inhaler INHALATION Aimovig Autoinjector 140 mg/mL auto-injector SUBCUT escitalopram oxalate 10 mg tablet 10 mg PO DAILY Follow-up/Referrals: Angela,CASTILLO White [Primary Care Provider] - Time of Disposition: 20:34
== END 2024-07-31 20:40 | disposition home or self-care (01) ==
PROVIDERS: Emergency Provider Nurse Practitioner; PCP Physician Assistant
DX: F41.9 Anxiety disorder, unspecified (principal); F12.90 Cannabis use, unspecified, uncomplicated
CPT/HCPCS: 99211; G0463

== ENCOUNTER 2024-11-17 19:36 | Emergency (ER) | payer MEDICARE, SELFPAY ==
--- OUTSIDE RECORDS SUMMARY | 2024-11-17 19:37 | XMS_ITS | Encounter Summary ---
Author Organization [facility] Address [address] [place] [address] Phone Care Team Providers Care Sleeve Tailor Name Role Phone Provider, None Primary Care Provider Cindy Serrato PAC Primary Care Pro vider Shawna Yip TRIAL MANAGER, WELT TREATER Unavailable [phone]- [phone] Reason for Visit * Reason Comments Medication Refill Encounter Details Date Type Department Care Team (Late st Contact Info) Description 02/26/2021 Refill [facility] - Neurology [facility] [address] [place] [address] Shawna Yip, TRIAL MANAGER, WELT TREATER [address] [place] [address] Medication Refill Social History Tobacco Use Types [...] as of this encounter Plan of Treatment Not on file documented as of this encounter Visit Diagnoses Diagnosis Chronic migraine w/o aura w/o status migrainosus, not intractable- Primary Chronic migraine without aura, without mention of intractable migraine without mention of status migrainosus documented in this encounter Additional Health Concerns Infection Onset Date Last Indicated Resolved Time Respiratory Rule-Out 04/21/2024 04/21/2024 024 4:11 PM AREA LOSS PREVENTION MANAGER COVID - 19 04/21/2024 04/21/2024 04/21/2024 4:11 PM AREA LOSS PREVENTION MANAGER COVID - 19 06/09/2024 06/09/2024 06/10/2024 12:1 9 AM AREA LOSS PREVENTION MANAGER Assessment Noted Time PHQ-9 Depression Total Score: 6 01/25/20 21 9:00 AM CDT documented as of this encounter Care Teams Sleeve Tailor Relationship Specialty Start Date End Date Provider, None OR PCP - General 07/05/20 01/21/22 Cindy Miller, [facility] [address] [place] [address] PCP - General Physician Talkback Host 01/22/22 Shawna Yip, TRIAL MANAGER, WELT TREATER [address] [place] [address] Nurse Practitioner Advanced Practice Nurse 05/07/22 documented as of this encounter
--- OUTSIDE RECORDS SUMMARY | 2024-11-17 19:37 | XMS_ITS | Encounter Summary ---
Author Organization [facility] Address [address] [place] [address] Phone Care Team Providers Care Director Microbiology Name Role Phone Cindy Miller PAC Primary Care Pro vider hSawna Yip STAIN SPRAYER, LEASE PICKER Unavailable [phone]- [phone] Reason for Visit * Reason Comments Medication Refill Encounter Details Date Type Department Care Team (Late st Contact Info) Description 01/22/2022 Refill [facility] - Neurology [facility] [address] [place] [address] Frank Bowling MD [address] [place] [address] Medication Refill Social History Tobacco Use Types [...] Respiratory Rule-Out 04/21/2024 04/21/2024 024 4:11 PM TUG BOAT ENGINEER COVID - 19 04/21/2024 04/21/2024 04/21/2024 4:11 PM TUG BOAT ENGINEER COVID - 19 06/09/2024 06/09/2024 06/10/2024 12:1 9 AM TUG BOAT ENGINEER Assessment Noted Time PHQ-9 Depression Total Score: 2 01/23/20 22 4:00 PM CDT documented as of this encounter Care Teams Director Microbiology Relationship Specialty Start Date End Date Cindy Miller, PAC [address] [place] [address] PCP - General Physician Dye House Supervisor 01/22/22 Shawna Yip, STAIN SPRAYER, LEASE PICKER [address] [place] [address] Nurse Practitioner Advanced Practice Nurse 05/07/22 documented as of this encounter
--- OUTSIDE RECORDS SUMMARY | 2024-11-17 19:37 | XMS_ITS | Encounter Summary ---
Author Organization [facility] Address [address] [place] [address] Phone Care Team Providers Care Sql Programmer Name Role Phone Cindy Miller PAC Primary Care Pro vider Shawna Yip WATER USE INSPECTOR, TIN CONTAINER STRAIGHTENER Unavailable [phone]- [phone] Reason for Visit * Reason Comments Medication Refill Encounter Details Date Type Department Care Team (Late st Contact Info) Description 01/20/2023 Refill [facility] - Neurology - [place] [address] [place] [address] Shawna Yip, WATER USE INSPECTOR, TIN CONTAINER STRAIGHTENER [address] [place] [address] Medication Refill Social History Tobacco Use Types [...] Telephone Encounter - Erika Sutton RN - 01/20/2023 11:54 AM CDT Medication [...] [place] 02/04/23 Appointment Cindy Miller PAC [facility] Showing future appointments within next 90 days [...] documented in this encounter Plan of Treatment Not on file documented as of this encounter Visit Diagnoses Diagnosis Anxiety Anxiety state, unspecified documented in this encounter Additional Health Concerns Infection Onset Date Last Indicated Resolved Time Respiratory Rule-Out 04/21/2024 04/21/2024 024 4:11 PM BRASS ROLLER COVID - 19 04/21/2024 04/21/2024 04/21/2024 4:11 PM BRASS ROLLER COVID - 19 06/09/2024 06/09/2024 06/10/2024 12:1 9 AM BRASS ROLLER Assessment Noted Time PHQ-9 Depression Total Score: 2 01/23/20 22 4:00 PM CDT documented as of this encounter Care Teams Sql Programmer Relationship Specialty Start Date End Date Cindy Miller PAC [address] [place] [address] PCP - General Physician Floral Manager 01/22/22 Shawna Yip APRN, TIN CONTAINER STRAIGHTENER [address] [place] [address] Nurse Practitioner Advanced Practice Nurse 05/07/22 documented as of this encounter
--- OUTSIDE RECORDS SUMMARY | 2024-11-17 19:37 | XMS_ITS | Encounter Summary ---
Author Organization [facility] Address [address] [facility] [place] [address] Phone Care Team Providers Care Country Singer Name Role Phone Cindy Miller PAC Primary Care Pro vider Shawna Yip WOOD FENCE INSTALLER, QUILL COLLECTOR Unavailable [phone]- [phone] Reason for Visit * Reason Comments Medication Refill Encounter Details Date Type Department Care Team (Late st Contact Info) Description 08/05/2023 Refill [facility] - Neurology - [place] [address] [place] [address] Shawna Yip, WOOD FENCE INSTALLER, QUILL COLLECTOR [address] [place] [address] Medication Refill Social History Tobacco Use Types Packs/Day Years Used Date Smoking Tobacco: Former Cigarettes Q uit: 01/28/2015 Smokeless Tobacco: Never Alcohol Use Standard Drinks/Week Comments No 0 (1 standard drink = 0.6 oz pur e alcohol) [facility] Utilities Answer Date Recorded In the past 12 months has [place], gas, oil, or water company threatened to shut off services in your home? Yes 08/03/2023 Social Connection and Isolation Panel [NHANES] A nswer Date Recorded In a typical week, how many times do you talk on the phone with family, friends, or neighbors? Once a week 08/03/2023 Frequency of Social Gatherings with Friends and Family Not on file 08/03/2023 Attends [employer] Services Not on file 08/03 Active Member [...] Total Score - Questions 1-9 7 01/13 [facility] - Occupational Stress Questionnaire Answer Date [...] place to sleep or slept in a intermediate (including now)? No 08/03/2023 Education Answer Date [...] Respiratory Rule-Out 04/21/2024 04/21/2024 024 4:11 PM BUILDING RENTAL MANAGER COVID - 19 04/21/2024 04/21/2024 04/21/2024 4:11 PM BUILDING RENTAL MANAGER COVID - 19 06/09/2024 06/09/2024 06/10/2024 12:1 9 AM BUILDING RENTAL MANAGER Assessment Noted Time PHQ-9 Depression Total Score: 7 01/27/20 23 3:00 PM CDT documented as of this encounter Care Teams Country Singer Relationship Specialty Start Date End Date Cindy Miller, PAC [address] [place] [address] PCP - General Physician Screwdown Operator 01/22/22 Shawna Yip APRN, QUILL COLLECTOR [address] [place] [address] Nurse Practitioner Advanced Practice Nurse 05/07/22 documented as of this encounter
--- OUTSIDE RECORDS SUMMARY | 2024-11-17 19:37 | XMS_ITS | Encounter Summary ---
Author Organization [facility] Address [address] [place] [address] Phone Care Team Providers Care Extra Hand Name Role Phone Provider, None Primary Care Provider Cindy Serrato PAC Primary Care Pro vider Shawna Yip BILLET EXAMINER, FLAKER TENDER Unavailable [phone]- [phone] Reason for Visit * Reason Comments Medication Refill Encounter Details Date Type Department Care Team (Late st Contact Info) Description 05/25/2021 Refill [facility] - Neurology [facility] [address] [place] [id number] Frank Bowling MD [address] [place] [id number] Medication Refill Social History Tobacco Use Types [...] Respiratory Rule-Out 04/21/2024 04/21/2024 024 4:11 PM HEAVY MEDIA OPERATOR COVID - 19 04/21/2024 04/21/2024 04/21/2024 4:11 PM HEAVY MEDIA OPERATOR COVID - 19 06/09/2024 06/09/2024 06/10/2024 12:1 9 AM HEAVY MEDIA OPERATOR Assessment Noted Time PHQ-9 Depression Total Score: 6 01/25/20 21 9:00 AM CDT documented as of this encounter Care Teams Extra Hand Relationship Specialty Start Date End Date Provider, None [place] PCP - General 07/05/20 01/21/22 Cindy Miller, [facility] [address] [place] [address] PCP - General Physician Sound Designer 01/22/22 Shawna Yip, BILLET EXAMINER, FLAKER TENDER [address] [place] [address] Nurse Practitioner Advanced Practice Nurse 05/07/22 documented as of this encounter
--- OUTSIDE RECORDS SUMMARY | 2024-11-17 19:37 | XMS_ITS | Encounter Summary ---
Author Organization [facility] Address [address] [place] [address] Phone Care Team Providers Care Ambulance Driver Name Role Phone Cindy Miller PAC Primary Care Pro vider Shawna Yip WEED CUTTER, ENGINEERING AIDE Unavailable +1- [phone] Reason for Visit * Reason Comments Medication Refill Encounter Details Date Type Department Care Team (Late st Contact Info) Description 09/06/2024 Refill [facility] - Neurology - [place] [address] [place] [address] Shawna Yip, WEED CUTTER, ENGINEERING AIDE [address] [place] [address] Medication Refill Social History Tobacco Use Types Packs/Day Years Used Date Smoking Tobacco: Former Cigarettes Q uit: 01/28/2015 Smokeless Tobacco: Never Alcohol Use Standard Drinks/Week Comments No 0 (1 standard drink = 0.6 oz pur e alcohol) [facility] Utilities Answer Date Recorded In the past 12 months has [email or web address], gas, oil, or water company threatened to shut off services in your home? Yes 08/03/2023 Social Connection and Isolation Panel [NHANES] A nswer Date Recorded In a typical week, how many times do you talk on the phone with family, friends, or neighbors? Once a week 08/03/2023 Frequency of Social Gatherings with Friends and Family Not on file 08/03/2023 Attends Yazidi Services Not on file 08/03 Active Member [...] Date Recorded Total Score - Questions 1-9 16 07/17 [facility] of Occupat ional [facility] - Occupational Stress Questionnaire Answer Date Recorded [...] on file documented as of this encounter Goals Goal Patient Goal Type Associated Problems Recent Progress Patient-Stated? Author I want to get through this and know how to be me again. Behavioral Health On track( 025 5:08 PM CDT) Yes Bhavya Rahman, NETWORK CONTRACT MANAGER Note: Goal/Objective: Improve coping with the grief related to her daughter's . Anticipated Time Frame for Goal Completion: 6 months Goal Reviewed with: patient Readiness to change: Ready to change Department associated with goal: [facility] Steps to achieve goal: 1. will attend at least 6 counseling sessions either individual and/or group 1x/mo, engaging in each session by verbalizing and processing thoughts and feelings related to grief and loss. 2. will report reduced feelings of guilt and resentment. 3. will identify and implement at least two outlets for grief and or coping skills to aid in managing problematic responses to grief. documented as of this encounter Visit Diagnoses Diagnosis Chronic migraine w/o aura w/o status migrainosus, not intractable Chronic migraine without aura, without mention of intractable migraine without mention of status migrainosus documented in this encounter Additional Health Concerns Assessment Noted Time PHQ-9 Depression Total Score: 16 025 4:00 PM ICE CREAM SERVER documented as of this encounter Care Teams Ambulance Driver Relationship Specialty Start Date End Date Cindy Miller, NATHAN [address] [place] [address] PCP - General Physician Health And Wellness Coordinator 01/22/22 Shawna Yip, WEED CUTTER, ENGINEERING AIDE [address] [place] [address] Nurse Practitioner Advanced Practice Nurse 05/07/22 documented as of this encounter
--- OUTSIDE RECORDS SUMMARY | 2024-11-17 19:37 | XMS_ITS | Encounter Summary ---
Author Organization [facility] Address [address] [place] [address] Phone Care Team Providers Care Gauger Chief Name Role Phone Cindy Miller PAC Primary Care Pro vider Shawna Yip STATION MASTER, CHANNEL INSTALLER Unavailable +1- [phone] Reason for Visit * Reason Comments Medication Refill Encounter Details Date Type Department Care Team (Late st Contact Info) Description 06/04/2023 Refill [facility] - Neurology - [place] [address]2 [place] [address] Shawna Yip, STATION MASTER, CHANNEL INSTALLER [address] [place] [address] Medication Refill Social History Tobacco Use Types [...] Type Provider Dept 01/26/23 Office Visit Cindy Miller PAC [facility] Showing recent visits within past 365 days and meeting all other requirements Future Appointments No visits were found meeting these conditions. Showing future appointments within next 90 days and meeting all other requirements RED VEHICLE OFFICER documented in this encounter Plan of Treatment Not on file documented as of this encounter Visit Diagnoses Diagnosis Chronic migraine w/o aura w/o status migrainosus, not intractable Chronic migraine without aura, without mention of intractable migraine without mention of status migrainosus documented in this encounter Additional Health Concerns Infection Onset Date Last Indicated Resolved Time Respiratory Rule-Out 04/21/2024 04/21/2024 024 4:11 PM ARMORED VEHICLE OFFICER COVID - 19 04/21/2024 04/21/2024 04/21/2024 4:11 PM ARMORED VEHICLE OFFICER COVID - 19 06/09/2024 06/09/2024 06/10/2024 12:1 9 AM ARMORED VEHICLE OFFICER Assessment Noted Time PHQ-9 Depression Total Score: 7 01/27/20 23 3:00 PM CDT documented as of this encounter Care Teams Gauger Chief Relationship Specialty Start Date End Date Cindy Miller PAC [address] [place] [address] PCP - General Physician Repairer Controller Tester 01/22/22 Shawna Yip APRN, CHANNEL INSTALLER [address] [place] [address] Nurse Practitioner Advanced Practice Nurse 05/07/22 documented as of this encounter
--- OUTSIDE RECORDS SUMMARY | 2024-11-17 19:37 | XMS_ITS | Encounter Summary ---
Author Organization [facility] Address [address] [place] [address] Phone Care Team Providers Care Ice Cream Vendor Name Role Phone Cindy Miller PAC Primary Care Pro vider Shawna Yip PODIATRIST, STORE DIRECTOR Unavailable +1- [phone] Reason for Visit * Reason Comments Medication Refill Encounter Details Date Type Department Care Team (Late st Contact Info) Description 11/27/2022 Refill [facility] - Neurology - [place] [address] [place] [address] Shawna Yip, PODIATRIST, STORE DIRECTOR [address] [place] [address] Medication Refill Social History Tobacco Use Types [...] Dept 05/07/22 Office Visit Shawna Yip APRN, STORE DIRECTOR [facility] 02/03/22 Office Visit Cindy Miller, PAC [facility] 01/22/22 Office Visit Cindy Miller, PAC [facility] Showing recent visits within past 365 days and meeting all other requirements Future Appointments Date Type Provider Dept 01/26/23 Appointment Cindy Miller, PAC [facility] [place] Showing future appointments within next 90 days [...] Respiratory Rule-Out 04/21/2024 04/21/2024 024 4:11 PM NURSE'S AIDES TEACHER COVID - 19 04/21/2024 04/21/2024 04/21/2024 4:11 PM NURSE'S AIDES TEACHER COVID - 19 06/09/2024 06/09/2024 06/10/2024 12:1 9 AM NURSE'S AIDES TEACHER Assessment Noted Time PHQ-9 Depression Total Score: 2 01/23/20 22 4:00 PM CDT documented as of this encounter Care Teams Ice Cream Vendor Relationship Specialty Start Date End Date Cindy Miller, NATHAN [address] [place] [address] PCP - General Physician Freight Clerk 01/22/22 Shawna Yip, PODIATRIST, STORE DIRECTOR [address] [place] [address] Nurse Practitioner Advanced Practice Nurse 05/07/22 documented as of this encounter
--- OUTSIDE RECORDS SUMMARY | 2024-11-17 19:37 | XMS_ITS | Encounter Summary ---
Author Organization [facility] Address [address] [place] [address] Phone Care Team Providers Care Alteration Inspector Name Role Phone Cindy Miller PAC Primary Care Pro vider Shawna Yip DIESEL TRACTOR OPERATOR, RIVET HEATER Unavailable +1- [phone] Reason for Visit * Reason Comments Medication Refill Encounter Details Date Type Department Care Team (Late st Contact Info) Description 02/24/2022 Refill [facility] - Neurology [facility] [address] [place] [address] Frank Bowling MD [address] [place] [address] Medication Refill Social History Tobacco [...] Respiratory Rule-Out 04/21/2024 04/21/2024 024 4:11 PM MELT DOWN FURNACE OPERATOR COVID - 19 04/21/2024 04/21/2024 04/21/2024 4:11 PM MELT DOWN FURNACE OPERATOR COVID - 19 06/09/2024 06/09/2024 06/10/2024 12:1 9 AM MELT DOWN FURNACE OPERATOR Assessment Noted Time PHQ-9 Depression Total Score: 2 01/23/20 22 4:00 PM CDT documented as of this encounter Care Teams Alteration Inspector Relationship Specialty Start Date End Date Cindy Miller, PAC [address] [place] [address] PCP - General Physician Email Operations Manager 01/22/22 Shawna Yip, DIESEL TRACTOR OPERATOR, RIVET HEATER [address] [place] [address] Nurse Practitioner Advanced Practice Nurse 05/07/22 documented as of this encounter
--- OUTSIDE RECORDS SUMMARY | 2024-11-17 19:37 | XMS_ITS | Encounter Summary ---
Author Organization [facility] Address [address] [facility] [place] [address] Phone Care Team Providers Care Batch Trucker Name Role Phone Provider, None Primary Care Provider Cindy Serrato PAC Primary Care Pro vider Shawna Yip ASSISTANT PUBLIC DEFENDER, DATAPOWER CONSULTANT Unavailable +1- [phone] Reason for Visit * Reason Comments Medication Refill Encounter Details Date Type Department Care Team (Late st Contact Info) Description 12/30/2021 Refill [facility] - Neurology [facility] [address] [place] [id number] Frank Bowling MD [address] [place] [address] Medication Refill Social History Tobacco Use Types [...] Respiratory Rule-Out 04/21/2024 04/21/2024 024 4:11 PM ELEMENTARY VOCAL MUSIC TEACHER COVID - 19 04/21/2024 04/21/2024 04/21/2024 4:11 PM ELEMENTARY VOCAL MUSIC TEACHER COVID - 19 06/09/2024 06/09/2024 06/10/2024 12:1 9 AM ELEMENTARY VOCAL MUSIC TEACHER Assessment Noted Time PHQ-9 Depression Total Score: 6 01/25/20 21 9:00 AM CDT documented as of this encounter Care Teams Batch Trucker Relationship Specialty Start Date End Date Provider, None MD PCP - General 07/05/20 01/21/22 Cindy Miller, [facility] [address] [place] [address] PCP - General Physician Director Of Dementia Operations 01/22/22 Shawna Yip, ASSISTANT PUBLIC DEFENDER, DATAPOWER CONSULTANT [address] [place] [address] Nurse Practitioner Advanced Practice Nurse 05/07/22 documented as of this encounter
--- OUTSIDE RECORDS SUMMARY | 2024-11-17 19:37 | XMS_ITS | Encounter Summary ---
Author Organization [facility] Address [address] [place] [address] Phone Care Team Providers Care Willow Analyst Name Role Phone Cindy Miller PAC Primary Care Pro vider Shawna Yip DENTAL PROFESSIONAL, LICENSE EXAMINER Unavailable [phone]- [phone] Reason for Visit * Reason Comments Medication Refill Encounter Details Date Type Department Care Team (Late st Contact Info) Description 03/10/2023 Refill [facility] - Neurology - [place] [address] [place] [address] Shawna Yip, DENTAL PROFESSIONAL, LICENSE EXAMINER [address] [place] [address] Medication Refill Social History Tobacco Use Types [...] Dept 01/26/23 [facility] Miller, [facility] 05/07/22 Office Visit Shawna Yip APRN, LICENSE EXAMINER [facility] [address] Showing recent visits within past 365 days [...] Respiratory Rule-Out 04/21/2024 04/21/2024 024 4:11 PM SENIOR EDUCATION SPECIALIST COVID - 19 04/21/2024 04/21/2024 04/21/2024 4:11 PM SENIOR EDUCATION SPECIALIST COVID - 19 06/09/2024 06/09/2024 06/10/2024 12:1 9 AM SENIOR EDUCATION SPECIALIST Assessment Noted Time PHQ-9 Depression Total Score: 7 01/27/20 3:00 PM CDT documented as of this encounter Care Teams Willow Analyst Relationship Specialty Start Date End Date Cindy Miller, [facility] [address] [place] [address] PCP - General Physician Hydro Plant Operator 01/22/22 Shawna Yip, DENTAL PROFESSIONAL, LICENSE EXAMINER [address] [place] [address] Nurse Practitioner Advanced Practice Nurse 05/07/22 documented as of this encounter
--- OUTSIDE RECORDS SUMMARY | 2024-11-17 19:37 | XMS_ITS | Encounter Summary ---
Author Organization [facility] Address [address] [facility] [place] [address] Phone Care Team Providers Care Radiation Control Health Physicist Name Role Phone Cindy Miller PAC Primary Care Pro vider Shawna Yip SENIOR PRODUCT DESIGNER, SALES ENGINEER ACCOUNT MANAGER Unavailable [phone]- [phone] Reason for Visit * Reason Comments Medication Refill Encounter Details Date Type Department Care Team (Late st Contact Info) Description 10/30/2023 [facility]ill [facility] - [place] [address] [place] [address] Cindy Miller, PAC [address] [place] [address] Medication Refill Social History Tobacco Use Types Packs/Day Years Used Date Smoking Tobacco: Former Cigarettes Q uit: 01/28/2015 Smokeless Tobacco: Never Alcohol Use Standard Drinks/Week Comments No 0 (1 standard drink = 0.6 oz pur e alcohol) [facility] Utilities Answer Date Recorded In the past 12 months has [employer], gas, oil, or water company threatened to shut off services in your home? Yes 08/03/2023 Social Connection and Isolation Panel [NHANES] A nswer Date Recorded In a typical week, how many times do you talk on the phone with family, friends, or neighbors? Once a week 08/03/2023 Frequency of Social Gatherings with Friends and Family Not on file 08/03/2023 Attends Restoration Services Not on file 08/03 Active Member [...] Total Score - Questions 1-9 7 01/13 [facility] of Occupat ional [facility] - Occupational Stress Questionnaire Answer Date [...] place to sleep or slept in a long-term (including now)? No 08/03/2023 Education Answer Date [...] Provider Dept 08/03/23 Office Visit Cindy Miller, PAC [facility] Showing recent visits within past 182 days [...] Dept 08/03/23 Office Visit Cindy Miller, NATHAN [facility] [place] Showing recent visits within past 182 days [...] Dept 08/03/23 Office Visit Cindy Miller, NATHAN [facility] [place] Showing recent visits within past 182 days [...] Rule-Out 04/21/2024 04/21/2024 11/07/2 024 4:11 PM RETAIL SUPPORT SPECIALIST COVID - 19 04/21/2024 04/21/2024 04/21/2024 4:11 PM RETAIL SUPPORT SPECIALIST COVID - 19 06/09/2024 06/09/2024 06/10/2024 12:1 9 AM RETAIL SUPPORT SPECIALIST Assessment Noted Time PHQ-9 Depression Total Score: 7 01/27/20 23 3:00 PM CDT documented as of this encounter Care Teams Radiation Control Health Physicist Relationship Specialty Start Date End Date Cindy Miller, [facility] [address] [place] [address] PCP - General Physician Wood Heel Cementer 01/22/22 Shawna Yip, SENIOR PRODUCT DESIGNER, SALES ENGINEER ACCOUNT MANAGER [address] [place] [address] Nurse Practitioner Advanced Practice Nurse 05/07/22 documented as of this encounter
--- OUTSIDE RECORDS SUMMARY | 2024-11-17 19:37 | XMS_ITS | Encounter Summary ---
Author Organization [facility] Address [address] [place] [address] Phone Care Team Providers Care It Network Administrator Name Role Phone Cindy Miller PAC Primary Care Pro vider hSawna Yip TECHNICAL ENGINEER, MULTIPLE EFFECT EVAPORATOR OPERATOR Unavailable +1- [phone] Reason for Visit * Reason Comments Medication Refill Encounter Details Date Type Department Care Team (Late st Contact Info) Description 01/22/2022 Refill [facility] - Neurology [facility] [address] [place] [address] Frank Bowling MD [address] [place] [address] Medication Refill Social History Tobacco [...] Respiratory Rule-Out 04/21/2024 04/21/2024 024 4:11 PM PRESIDENTIAL SUPPORT SPECIALIST COVID - 19 04/21/2024 04/21/2024 04/21/2024 4:11 PM PRESIDENTIAL SUPPORT SPECIALIST COVID - 19 06/09/2024 06/09/2024 06/10/2024 12:1 9 AM PRESIDENTIAL SUPPORT SPECIALIST Assessment Noted Time PHQ-9 Depression Total Score: 2 01/23/20 22 4:00 PM CDT documented as of this encounter Care Teams It Network Administrator Relationship Specialty Start Date End Date Cindy Miller, PAC [address] [place] [address] PCP - General Physician Teradata Architect 01/22/22 Shawna Yip, TECHNICAL ENGINEER, MULTIPLE EFFECT EVAPORATOR OPERATOR [address] [place] [address] Nurse Practitioner Advanced Practice Nurse 05/07/22 documented as of this encounter
--- OUTSIDE RECORDS SUMMARY | 2024-11-17 19:37 | XMS_ITS | Encounter Summary ---
Author Organization [facility] Address [address] [place] [address] Phone Care Team Providers Care Bench Lay Out Technician Name Role Phone Provider, None Primary Care Provider Cindy Serrato PAC Primary Care Pro vider Shawna Yip SHERIFF'S DETECTIVE, SOLAR ELECTRIC PRACTITIONER Unavailable +1- [phone] Reason for Visit * Reason Comments Medication Refill Encounter Details Date Type Department Care Team (Late st Contact Info) Description 10/30/2021 Refill [facility] - Neurology [facility] [address] [place] [address] Shawna Yip, SHERIFF'S DETECTIVE, SOLAR ELECTRIC PRACTITIONER [address] [place] [address] Medication Refill Social History Tobacco Use Types [...] Respiratory Rule-Out 04/21/2024 04/21/2024 024 4:11 PM SCARRER COVID - 19 04/21/2024 04/21/2024 04/21/2024 4:11 PM SCARRER COVID - 19 06/09/2024 06/09/2024 06/10/2024 12:1 9 AM SCARRER Assessment Noted Time PHQ-9 Depression Total Score: 6 01/25/20 21 9:00 AM CDT documented as of this encounter Care Teams Bench Lay Out Technician Relationship Specialty Start Date End Date Provider, None [place] PCP - General 07/05/20 01/21/22 Cindy Miller, PAC [address] [place] [address] PCP - General Physician Television Engineering Teacher 01/22/22 Shawna Yip APRN, SOLAR ELECTRIC PRACTITIONER [address] [place] [address] Nurse Practitioner Advanced Practice Nurse 05/07/22 documented as of this encounter
--- OUTSIDE RECORDS SUMMARY | 2024-11-17 19:37 | XMS_ITS | Encounter Summary ---
Author Organization [facility] Address [address] [place] [address] Phone Care Team Providers Care Bookkeeping Teacher Name Role Phone Cindy Miller Primary Care Pro vider Shawna Yip EHS TEACHER, CHUCKING AND BORING MACHINE OPERATOR Unavailable [phone]- [phone] Reason for Visit * Reason Onset Date Comments Medication Refill 08/05/2024 Encounter Details Date Type Department Care Team (Late st Contact Info) Description 08/05/2024 [facility]phone [facility] - [place] [address] [place] [address] Cindy Miller, PAC [address] [place] [address] Medication Refill Social History Tobacco Use Types Packs/Day Years Used Date Smoking Tobacco: Former Cigarettes Q uit: 01/28/2015 Smokeless Tobacco: Never Alcohol Use Standard Drinks/Week Comments No 0 (1 standard drink = 0.6 oz pur e alcohol) [facility] Utilities Answer Date Recorded In the past 12 months has [employer], gas, oil, or water company threatened to shut off services in your home? Yes 08/03/2023 Social Connection and Isolation Panel [NHANES] A nswer Date Recorded In a typical week, how many times do you talk on the phone with family, friends, or neighbors? Once a week 08/03/2023 Frequency of Social Gatherings with Friends and Family Not on file 08/03/2023 Attends Lutheran Services Not on file 08/03 Active Member [...] Total Score - Questions 1-9 16 07/17 [facility] - Occupational Stress [...] place to sleep or slept in a detention (including now)? No 08/03/2023 Education Answer Date [...] on file documented as of this encounter Functional Status * Question Answer Date of Assessment Author Little interest or pleasure in doing things Nearly every day 08/11/2024 4:00 PM Bhavya Isaac LCSW Feeling down, depressed, or hopeless Nearly every day 08/11/2024 4:00 PM PRODUCT DIRECTOR Bhavya Rahman LC SW * Over the past 2 weeks, how often have you been bothered by any of the following problems? Question Answer Date of Assessment Author Patient Health Questionnaire -2 Score 6 08/11/2024 4:00 PM PRODUCT DIRECTOR Bhavya Rahman LC SW documented as of this encounter Miscellaneous Notes * Telephone Encounter - Cindy Miller PAC - 08/08/2024 5:16 PM CST RF med Needs to f/u with me about this UCT DIRECTOR * Telephone Encounter - Shantell Oquendo - 08/05/2024 9:06 AM CST Med rf Medication - Hydroxyzine 10 mg tab Phone - [phone] Pharmacy - [facility] Nevaeh was seen in the Er on 06-09-24 and was told to double up on this medication and she is now out of medication. UCT DIRECTOR documented in this encounter Plan of Treatment Not on file documented as of this encounter Goals Goal Patient Goal Type Associated Problems Recent Progress Patient-Stated? Author I want to get through this and know how to be me again. Behavioral Health On track( 025 5:08 PM CDT) Yes Bhavya Rahman, LEGAL CONSULTANT Note: Goal/Objective: Improve coping with the grief related to her daughter's . Anticipated Time Frame for Goal Completion: 6 months Goal Reviewed with: patient Readiness to change: Ready to change Department associated with goal: [facility] Steps to achieve goal: [...] filedocumented in this encounter Additional Health Concerns Assessment Noted Time PHQ-9 Depression Total Score: 7 01/27/20 23 3:00 PM CDT documented as of this encounter Care Teams Bookkeeping Teacher Relationship Specialty Start Date End Date Cindy Miller PAC [address] [place] [address] PCP - General Physician Limousine Rental Clerk 01/22/22 Shawna Yip APRN, CHUCKING AND BORING MACHINE OPERATOR [address] [place] [address] Nurse Practitioner Advanced Practice Nurse 05/07/22 documented as of this encounter
--- OUTSIDE RECORDS SUMMARY | 2024-11-17 19:37 | XMS_ITS | Encounter Summary ---
Author Organization [facility] Address [address] [facility] [place] [address] Phone Care Team Providers Care Pharmacognosist Name Role Phone Cindy Miller PAC Primary Care Pro vider Shawna Yip MANAGER SPANISH, SAFETY DEPOSIT SUPERVISOR Unavailable [phone]- [phone] Reason for Visit * Reason Comments Medication Refill Encounter Details Date Type Department Care Team (Late st Contact Info) Description 04/22/2024 Refill [facility] - [place] [address] [place] [address] Cindy Miller, PAC [address] [facility] [address] Medication Refill Social History Tobacco Use Types Packs/Day Years Used Date Smoking Tobacco: Former Cigarettes Q uit: 01/28/2015 Smokeless Tobacco: Never Alcohol Use Standard Drinks/Week Comments No 0 (1 standard drink = 0.6 oz pur e alcohol) [facility] Utilities Answer Date Recorded In the past 12 months has [employer], gas, oil, or water company threatened to shut off services in your home? Yes 08/03/2023 Social Connection and Isolation Panel [NHANES] A nswer Date Recorded In a typical week, how many times do you talk on the phone with family, friends, or neighbors? Once a week 08/03/2023 Frequency of Social Gatherings with Friends and Family Not on file 08/03/2023 Attends Pentecostal Services Not on file 08/03 Active Member [...] Total Score - Questions 1-9 7 01/13 [facility] of Occupat ional [facility] - Occupational Stress Questionnaire Answer Date [...] 19 06/09/2024 06/09/2024 06/10/2024 12:1 9 AM POULTRY TENDER Assessment Noted Time PHQ-9 Depression Total Score: 7 01/27/20 23 3:00 PM CDT documented as of this encounter Care Teams Pharmacognosist Relationship Specialty Start Date End Date Cindy Miller PAC [address] [place] [address] PCP - General Physician Websphere Consultant 01/22/22 Shawna Yip APRN, SAFETY DEPOSIT SUPERVISOR [address] [place] [address] Nurse Practitioner Advanced Practice Nurse 05/07/22 documented as of this encounter
--- OUTSIDE RECORDS SUMMARY | 2024-11-17 19:37 | XMS_ITS | Encounter Summary ---
Author Organization [facility] Address [address] [facility] [place] [address] Phone Care Team Providers Care Water Mechanic Name Role Phone Provider, None Primary Care Provider Cindy Serrato PAC Primary Care Pro vider Shawna Yip COMPUTER NETWORKING INSTRUCTOR ADJUNCT, ARCHITECTURAL DESIGN PROFESSOR Unavailable +1- [phone] Reason for Visit * Reason Comments Medication Refill Encounter Details Date Type Department Care Team (Late st Contact Info) Description 01/02/2021 Refill [facility] - Neurology [facility] [address] [place] [address] Shawna Yip, COMPUTER NETWORKING INSTRUCTOR ADJUNCT, ARCHITECTURAL DESIGN PROFESSOR [address] [place] [address] Medication Refill Social History Tobacco Use Types [...] Respiratory Rule-Out 04/21/2024 04/21/2024 024 4:11 PM RETAIL PRODUCT DEMO SPECIALIST COVID - 19 04/21/2024 04/21/2024 04/21/2024 4:11 PM RETAIL PRODUCT DEMO SPECIALIST COVID - 19 06/09/2024 06/09/2024 06/10/2024 12:1 9 AM RETAIL PRODUCT DEMO SPECIALIST Assessment Noted Time PHQ-9 Depression Total Score: 0 03/12/20 18 3:00 PM CDT documented as of this encounter Care Teams Water Mechanic Relationship Specialty Start Date End Date Provider, None [place] PCP - General 07/05/20 01/21/22 Cindy Miller, PAC [address] [place] [address] PCP - General Physician Registered Public Surveyor 01/22/22 Shawna Yip, COMPUTER NETWORKING INSTRUCTOR ADJUNCT, ARCHITECTURAL DESIGN PROFESSOR [address] [place] [address] Nurse Practitioner Advanced Practice Nurse 05/07/22 documented as of this encounter
--- OUTSIDE RECORDS SUMMARY | 2024-11-17 19:37 | XMS_ITS | Encounter Summary ---
Author Organization [facility] Address [address] [facility] [place] [address] Phone Care Team Providers Care Handbook Writer Name Role Phone Provider, None Primary Care Provider Cindy Serrato PAC Primary Care Pro vider Shawna Yip LATHE OPERATOR, ANESTHESIOLOGIST AND CRITICAL CARE Unavailable [phone]- [phone] Reason for Visit * Reason Comments Medication Refill Encounter Details Date Type Department Care Team (Late st Contact Info) Description 06/06/2021 Refill [facility] - Neurology [facility] [address] [place] [address] Shawna Yip, LATHE OPERATOR, ANESTHESIOLOGIST AND CRITICAL CARE [address] [place] [address] Medication Refill Social History Tobacco Use Types [...] Respiratory Rule-Out 04/21/2024 04/21/2024 024 4:11 PM NATURAL RESOURCES ENGINEER COVID - 19 04/21/2024 04/21/2024 04/21/2024 4:11 PM NATURAL RESOURCES ENGINEER COVID - 19 06/09/2024 06/09/2024 06/10/2024 12:1 9 AM NATURAL RESOURCES ENGINEER Assessment Noted Time PHQ-9 Depression Total Score: 6 01/25/20 21 9:00 AM CDT documented as of this encounter Care Teams Handbook Writer Relationship Specialty Start Date End Date Provider, None [place] PCP - General 07/05/20 01/21/22 Cindy Miller, [facility] [address] [place] [address] PCP - General Physician Past Due Accounts Clerk 01/22/22 Shawna Yip, LATHE OPERATOR, ANESTHESIOLOGIST AND CRITICAL CARE [address] [place] [address] Nurse Practitioner Advanced Practice Nurse 05/07/22 documented as of this encounter
--- OUTSIDE RECORDS SUMMARY | 2024-11-17 19:37 | XMS_ITS | Encounter Summary ---
Author Organization [facility] Address [address] [facility] [place] [address] Phone Care Team Providers Care Echo Vascular Tech Name Role Phone Provider, None Primary Care Provider Cindy Serrato PAC Primary Care Pro vider Shawna Yip SSIS ETL DEVELOPER, POLE CLASSIFIER Unavailable [phone]- [phone] Reason for Visit * Reason Comments Medication Refill Encounter Details Date Type Department Care Team (Late st Contact Info) Description 12/09/2021 Refill [facility] - Neurology [facility] [address] [place] [address] Shawna Yip, SSIS ETL DEVELOPER, POLE CLASSIFIER [address] [place] [address] Medication Refill Social History Tobacco Use Types [...] Respiratory Rule-Out 04/21/2024 04/21/2024 024 4:11 PM REEL OPERATOR COVID - 19 04/21/2024 04/21/2024 04/21/2024 4:11 PM REEL OPERATOR COVID - 19 06/09/2024 06/09/2024 06/10/2024 12:1 9 AM REEL OPERATOR Assessment Noted Time PHQ-9 Depression Total Score: 6 01/25/20 21 9:00 AM CDT documented as of this encounter Care Teams Echo Vascular Tech Relationship Specialty Start Date End Date Provider, None [place] PCP - General 07/05/20 01/21/22 Cindy Miller, [facility] [address] [place] [address] PCP - General Physician Convention Worker 01/22/22 Shawna Yip, SSIS ETL DEVELOPER, POLE CLASSIFIER [address] [place] [address] Nurse Practitioner Advanced Practice Nurse 05/07/22 documented as of this encounter
--- OUTSIDE RECORDS SUMMARY | 2024-11-17 19:37 | XMS_ITS | Encounter Summary ---
Author Organization [facility] Address [address] [facility] [facility] [place] [address] Phone Care Team Providers Care Hospital Insurance Representative Name Role Phone Cindy Miller PAC Primary Care Pro vider Shawna Yip AUXILIARY OPERATOR, SPARK PLUG ASSEMBLER Unavailable [phone]- [phone] Reason for Visit * Reason Comments Medication Refill Encounter Details Date Type Department Care Team (Late st Contact Info) Description 02/12/2023 [facility]ill [facility] - [place] [address] [place] [address] Jhoana Waters, PAC [address] [place] [address] Medication Refill Social History Tobacco Use Types [...] Respiratory Rule-Out 04/21/2024 04/21/2024 024 4:11 PM HAT AND CAP SEWER COVID - 19 04/21/2024 04/21/2024 04/21/2024 4:11 PM HAT AND CAP SEWER COVID - 19 06/09/2024 06/09/2024 06/10/2024 12:1 9 AM HAT AND CAP SEWER Assessment Noted Time PHQ-9 Depression Total Score: 7 01/27/20 23 3:00 PM CDT documented as of this encounter Care Teams Hospital Insurance Representative Relationship Specialty Start Date End Date Cindy Miller, PAC [address] [place] [address] PCP - General Physician Director Of Graduate Medical Education 01/22/22 Shawna Yip, AUXILIARY OPERATOR, SPARK PLUG ASSEMBLER [address] [place] [address] Nurse Practitioner Advanced Practice Nurse 05/07/22 documented as of this encounter
--- OUTSIDE RECORDS SUMMARY | 2024-11-17 19:37 | XMS_ITS | Encounter Summary ---
Author Organization [facility] Address [address] [facility] [place] [address] Phone Care Team Providers Care Medical Genetics Director Name Role Phone Provider, None Primary Care Provider Cindy Serrato PAC Primary Care Pro vider Shawna Yip DECK CADET, SUPPLY CHAIN DESIGN MANAGER Unavailable [phone]- [phone] Reason for Visit * Reason Comments Medication Refill Encounter Details Date Type Department Care Team (Late st Contact Info) Description 07/02/2021 Refill [facility] - Neurology [facility] [address] [place] [id number] Frank Bowling MD [address] [place] [address] Medication Refill Social History Tobacco Use Types [...] Respiratory Rule-Out 04/21/2024 04/21/2024 024 4:11 PM TELEGRAPH INSPECTOR COVID - 19 04/21/2024 04/21/2024 04/21/2024 4:11 PM TELEGRAPH INSPECTOR COVID - 19 06/09/2024 06/09/2024 06/10/2024 12:1 9 AM TELEGRAPH INSPECTOR Assessment Noted Time PHQ-9 Depression Total Score: 6 01/25/20 21 9:00 AM CDT documented as of this encounter Care Teams Medical Genetics Director Relationship Specialty Start Date End Date Provider, None [place] PCP - General 07/05/20 01/21/22 Cindy Miller, [facility] [address] [place] [address] PCP - General Physician Acid Operator 01/22/22 Shawna Yip, DECK CADET, SUPPLY CHAIN DESIGN MANAGER [address] [place] [address] Nurse Practitioner Advanced Practice Nurse 05/07/22 documented as of this encounter
--- OUTSIDE RECORDS SUMMARY | 2024-11-17 19:37 | XMS_ITS | Encounter Summary ---
Author Organization [facility] Address [address] [facility] [place] [address] Phone Care Team Providers Care Clinic Physician Name Role Phone Provider, None Primary Care Provider Cindy Serrato PAC Primary Care Pro vider Shawna Yip FOOD SAFETY FIELD SPECIALIST, COMMUNITY HEALTH WORKER Unavailable [phone]- [phone] Reason for Visit * Reason Comments Medication Refill Encounter Details Date Type Department Care Team (Late st Contact Info) Description 10/26/2020 Refill [facility] - Neurology [facility] [address] [place] [address] Shawna Yip, FOOD SAFETY FIELD SPECIALIST, COMMUNITY HEALTH WORKER [address] [place] [address] Medication Refill Social History Tobacco Use Types [...] Respiratory Rule-Out 04/21/2024 04/21/2024 024 4:[address] REPORTER COVID - 19 04/21/2024 04/21/2024 04/21/2024 4:[address] REPORTER COVID - 19 06/09/2024 06/09/2024 06/10/2024 12:[address] REPORTER Assessment Noted Time PHQ-9 Depression Total Score: 0 03/12/20 18 3:00 PM CDT documented as of this encounter Care Teams Clinic Physician Relationship Specialty Start Date End Date Provider, None [place] PCP - General 07/05/20 01/21/22 Cindy Miller, NATHAN [address] [place] [address] PCP - General Physician Sap Bobj Developer 01/22/22 Shawna Yip APRN, HANG [address] [place] [address] Nurse Practitioner Advanced Practice Nurse 05/07/22 documented as of this encounter
--- OUTSIDE RECORDS SUMMARY | 2024-11-17 19:37 | XMS_ITS | Clinical Summary ---
Author Organization [facility] Address [address] [place] [address] Phone Care Team Providers Care Machine Plaster Mixer Name Role Phone Cindy Miller Primary Care Pro vider Shawna Yip MATERIAL MOVER, DRONE PILOT Unavailable [phone]- [phone] Allergies Active Allergy Reactions Criticality Noted Date Comments Cephalosporins Hives 12/24/2017 Medications albuterol (Proventil HFA) 108 (90 Base) MCG/ACT [...] severe pain. 20 Tablet 06/10/20 24 Active escitalopram (LEXAPRO) 10 MG Tablet Take 2 Tablets by mouth daily. 90 Tablet 07/20/19 25 Active Aimovig 140 MG/ML Solution Auto-injectorIn dications:Chron ic migraine w/o aura w/o status migrainosus, not intractable INJECT 1 ML SUBCUTANEOUSLY ONCE EVERY MONTH 1 mL 2 09/09/19 25 Active hydrOXYzine (ATARAX) 10 MG Tablet TAKE 1 TABLET BY MOUTH EVERY 6 HOURS NEEDED FOR ANXIETY 90 Tablet 10/06/19 25 Active Rizatriptan Benzoate 10 MG TabletIndicatio ns:Chronic migraine w/o aura w/o status migrainosus, not intractable TAKE 1 TABLET BY MOUTH ONCE NEEDED FOR HEADACHES. MAY REPEAT IN 2 HOURS IF NEEDED 9 Tablet 2 10/14/19 25 Active Active Problems Problem Noted Date Diagnosed Date Major depressive disorder, recurrent episode, mo derate 08/11/2024 Grief 08/11/2024 Non-compliance 04/21/2024 Overview (04/21/2024): Mammogram Colon CA screenings ARTIST MODEL care Anemia 01/22/2022 Chronic migraine w/o aura w/ o status migrainosus, not intractable 07/05/2020 History of PSVT (paroxysmal supraventricular tac hycardia) 07/14/2019 Idiopathic scoliosis of thoracolumbar spine 12/13 Hyperthyroidism 12/24/2017 Heart palpitations 12/24/2017 Urge and stress incontinence 12/24/2017 Anxiety 12/24/2017 Migraine with aura and witho ut status migrainosus, not intractable 12/24/2017 Encounters Date Type Department Care Team Description 10/09/20[facility] [place] [address] [place] [address] Shawna Yip APRN, DRONE PILOT Medication Refill 10/05/2024 Refill [facility] - Internal Medicine - [place] [address] [address] Cindy Miller, PAC Medication Refill 09/27/2024 Travel 09/08/2024 [facility] [address] [place] [address] Shawna Yip APRN, DRONE PILOT Medication Refill 09/06/2024 [facility] [address] [place] [phone] Shawna Yip, MATERIAL MOVER, DRONE PILOT Medication Refill 08/25/2024 Refill [facility] - [facility] Medicine - [place] [address] [address] Jhoana Waters, PAC Medication Refill 08/18/2024 Patient Outreach [facility] [address] [place] [address] Mariama Brandt Care Management from Last 3 Months Immunizations Immunization Administration Dates Next Due Covid-19, Mrna, Lnp-s, Pf, 30 Mcg/0.3 Ml Dose (P julian) 11/20/2020 Family History Medical History Relation Name Comments Alzheimer's Disease Father Stroke Father Relation Name Status Comments Father Mother blood clots Social History Tobacco Use Types Packs/Day Years Used Date Smoking Tobacco: Former Cigarettes Q uit: 01/28/2015 Smokeless Tobacco: Never Tobacco Cessation:Counseling Given: Not Answered Alcohol Use Standard Drinks/Week Comments No 0 (1 standard drink = 0.6 oz pur e alcohol) [facility] Utilities Answer Date Recorded In the past 12 months has [employer] electric, gas, oil, or water company threatened to shut off services in your home? Yes 08/03/2023 Social Connection and Isolation Panel [NHANES] A nswer Date Recorded In a typical week, how many times do you talk on the phone with family, friends, or neighbors? Once a week 08/03/2023 Frequency of Social Gatherings with Friends and Family Not on file 08/03/2023 Attends Synagogue Services Not on file 08/03 Active Member [...] Total Score - Questions 1-9 16 07/17 [facility] - Occupational Stress [...] Comments Blood Pressure 118/70 07/20/2024 9:36 AM RAIL TRACK MAINTAINER Pulse 68 07/20/2024 9:16 AM RAIL TRACK MAINTAINER Temperature 36.1 C (97 F) 07/20/2024 9:16 AM RAIL TRACK MAINTAINER Respiratory Rate 16 06/10/2024 1:47 AM RAIL TRACK MAINTAINER Oxygen Saturation 97% 07/20/2024 9:16 AM RAIL TRACK MAINTAINER Inhaled Oxygen Concentration - - Weight 56.7 kg (125 lb) 06/09/2024 10:18 PM RAIL TRACK MAINTAINER Height 172.7 cm (5' 8) 06/09/2024 10:18 PM RAIL TRACK MAINTAINER Body Mass Index 19.01 06/09/2024 10:18 PM RAIL TRACK MAINTAINER Plan of Treatment Health Maintenance Due Date Last Done Comments TdaP Immunization 1970 Hepatitis B Immunization (1 of 3 - 19+ 3-dose series) 12/10/1990 Colonoscopy 12/10/2016 Colorectal Cancer Screening 12/10/2016 Mammogram 03/18/2019 03/18/2018, 10/12/2015 Pap Smear 01/29/2021 01/29/2018 Cologuard 12/10/2021 Immunochemical Fecal Occult Blood 12/10/2021 Pneumococcal Immunization (5 0+ years) (1 of 1 - PCV) 12/10/2021 Zoster Immunization (1 of 2) 12/10/2021 Cervical Cancer Screening (CCS) 01/29/2023 HPV/Cotest 01/29/2023 01/29/2018 SARS-COV-2 Immunization (3 - season) 2024 11/20/2020, 10/30/2020 Influenza Immunization (Seas on Ended) 2025 Respiratory Syncytial Virus (RSV) Immunization (Adult) (1 - 1-dose 75+ series) 12/10/2046 Discussion re Starting/Frequency of Mammograms Discontinued 08/10/2018, 03/18/2018, 10/12/2015 Hepatitis C Virus (HCV) Screening Completed 12/09/2018 Human Papillomavirus (HPV) Immunization Aged Out No longer eligible based on patient's age to complete this topic Meningococcal Immunization (ACWY) Aged Out No longer eligible based on patient's age to complete this topic Rotavirus Immunization Aged Out No lo nger eligible based on patient's age to complete this topic Goals Goal Patient Goal Type Associated Problems Recent Progress Patient-Stated? Author I want to get through this and know how to be me again. Behavioral Health On track( 025 5:08 PM CDT) Yes Bhavya Rahman, OFFICE CLERK ROUTINE Note: Goal/Objective: Improve coping with the grief related to her daughter's . Anticipated Time Frame for Goal Completion: 6 months Goal Reviewed with: patient Readiness to change: Ready to change Department associated with goal: [facility] Steps to achieve goal: [...] aid in managing problematic responses to grief. Procedures Procedure Name Priority Date/Time Associated Diagnosis Comments HEPATITIS PANEL ACUTE (AHP) Routine 12/09/2018 10:33 AM CDT Encounter for assessment of STD exposure HUONG DIAG RIGHT UNILATERAL DIGITAL W CAD W AGUSTIN Routine 08/10/2018 3:39 PM RAIL TRACK MAINTAINER Breast mass, right HUONG SCREENING BILATERAL DIGITAL W CAD W AGUSTIN Routine 03/18/2018 9:17 AM CDT Breast cancer screening HUMAN PAPILLOMA VIRUS (HPV) Routine 01/29/2018 7:59 AM CDT Well woman exam with routine gynecological exam PATHOLOGY CYTOLOGY ARTIST MODEL Routine 01/29/2018 7:59 AM CDT Well woman exam with routine gynecological exam from Last 3 Months or Most Recently Relevant to Health Maintenance Results * HEPATITIS PANEL ACUTE (AHP) (12/09/2018 10:33 AM CDT) HEPATITIS A IGM ANTIBODY NON DETECTED NON DETECTED 12/09/2018 10:20 PM CDT [facility] Comment: IGM Antibodies to HAV not detected. Does not exclude early acute or recovered HAV infection. HEP B CORE AB (IGM) NON DETECTED NON DETECTED 12/09/2018 10:20 PM CDT [facility] Comment: IGM anti-HBC not detected. Does not exclude the possibility of exposure to or infection with HBV. HEPATITIS B SURFACE ANTIGEN NON DETECTED NON DETECTED 12/09/2018 10:20 PM CDT [facility] Comment: A nonreactive test result does not [...] 0.15 <1 S/CO 12/09/2018 10:20 PM CDT [facility] Comment: Signal/Cutoff ratio < 0.79 is Nondetected Signal/Cutoff ratio 0.80-0.99 is Grayzone Signal/Cutoff ratio > 0.99 is Detected Supplemental assays are recommended if signal/cutoff ratio is >/=1.00. Signal/cutoff ratio result >/= 5.00 is 97% predictive of positivity for recombinant immunoblot assay (RIBA) and will be reported to the [place] Department of Public Health as required. Blood specimen (specimen) Venipuncture / Unknown 12/09/2018 10:33 AM CDT 12/09/2018 10:33 AM CDT Nina Yates PAC HEMATOLOGY ORDERABLES Fin al Result [facility] [address] [place] [address], [place] * HUONG DIAG RIGHT UNILATERAL DIGITAL W CAD W AGUSTIN (08/10/2018 3:39 PM RAIL TRACK MAINTAINER) Anatomical Region Laterality Modality breast Right Mammography 08/10/2018 2:59 PM RAIL TRACK MAINTAINER Narrative 08/11/2018 5:55 AM RAIL TRACK MAINTAINER - HUONG DIAG RIGHT UNILATERAL DIGITAL W [...] Comparison is made to exams dated: 03/18/2018 [facility] and 10/12/2015 [facility]. BREAST TISSUE:The tissue of the right [...] signed by: Roberto Worley M.D. ll/:08/10/2018 15:54:47 Billing Clerk: Nevaeh WHITAKER(Melody)([place]), [facility] letter sent: Normal Exam Reading location: [facility] OVERALL STUDY BIRADS: 2 Benign Procedure Note [...] Comparison is made to exams dated: 03/18/2018 [facility] and 10/12/2015 [facility]. BREAST TISSUE:The tissue of the right [...] signed by: Roberto Worley M.D. ll/:08/10/2018 15:54:47 Billing Clerk: Nevaeh FIGUEREDO)([place]), [facility] letter sent: Normal Exam Reading location: [place] OVERALL STUDY BIRADS: 2 Benign us Nina Yates PAC IMG MAMMO ORDERABLES Asmita l Result * [...] Comparison is made to exam dated: 10/12/2015 [facility]. BREAST TISSUE:The tissue of both breasts [...] next screening exam. Electronically signed by: Roberto rodriguez/penrad:03/19/2018 11:18:04 Billing Clerk: Nevaeh WHITAKER (R)([place]), [facility] letter sent: Normal Exam Reading location: [facility] BI-RADS: 1 Negative Procedure Note Roberto [...] Comparison is made to exam dated: 10/12/2015 [facility]. BREAST TISSUE:The tissue of both breasts [...] next screening exam. Electronically signed by: Roberto rodriguez/penrad:03/19/2018 11:18:04 Billing Clerk: Nevaeh FIGUEREDO)([place]), [facility] letter sent: Normal Exam Reading location: [facility] BI-RADS: 1 Negative us Nina EVANS IMG MAMMO ORDERABLES Asmita l Result * PATHOLOGY CYTOLOGY ARTIST MODEL (01/29/2018 7:59 AM CDT) SPECIMEN ADEQUACY Satisfactory for evaluation. Endocervical cells present. 02/19/2018 10:49 AM CDT [facility] DESCRIPTIVE DIAGNOSIS Negative for intraepithelial lesions. No dysplastic cells present. 02/19/2018 10:49 AM CDT [facility] at 1049 CDT AUTOMATED EXAMINATION Analysis of this sample has been assisted by an automated imaging and review system ([employer] System, [employer], [place], [place]). This case is further evaluated and finalized by a cdl company flatbed driver and/or pathologist. 02/19/2018 10:49 AM CDT [facility] DISCLAIMER The PAP smear is a screening [...] recommended every three years for women 21-29, Co-Testing, a PAP test in conjunction with an HPV (Human Papillomavirus) test for women ages 30-65, and no PAP or HPV testing for women under the age of 21 or older than 65 unless clinically indicated. 02/19/2018 10:49 AM CDT [facility] Case Report Gynecologic Cytology Report Case: [id number] Authorizing Provider: Nina Yates PAC Collected: 01/29/2018 07:59 AM Ordering Location: [facility] Received: 01/29/2018 07:59 AM [facility] First Screen: Tanya Fan Specimen: TP Screen, CERVIX/ENDOCERVIX 02/19/2018 10:49 AM CDT [facility] HPV Reflex if ASCUS? Yes 02/19/2018 10:49 AM CDT [facility] Specimen of unknown material (specimen) CERVIX UTERI STRUCTURE / Unknown Non-Phlebotomy Collection / Unknown 01/29/2018 7:59 AM CDT 01/29/2018 7:59 AM CDT us Nina Yates PAC PATHOLOGY/CYTOLOGY ORDERA BLES Final Result [facility] [address] [place] [address], [place] * (ABNORMAL) HUMAN PAPILLOMA VIRUS (HPV) (01/29/2018 7:59 AM CDT) HPV OTHER HIGH RISK TYPES, PCR POSITIVE(A) NEGATIVE 02/04/2018 7:06 AM CDT [facility] Comment: Positive for one or more of the following Other High HPV types: 31, 33, 35, 39, 45, 51, 52, 56, 58, 59, 66, and 68. False-positive results have been reported with molecular assays. If these positive results are discordant with clinical/cytohistologic findings, repeat testing may be considered after an appropriate interval. HPV TYPE 16 NEGATIVE NEGATIVE 02/04/2018 7:06 AM CDT [facility] Comment: A negative high-risk HPV result does [...] 18 NEGATIVE NEGATIVE 02/04/2018 7:06 AM CDT [facility] Comment: A negative high-risk HPV result does [...] AM CDT 01/29/2018 7:59 AM CDT Narrative [facility] - 02/04/2018 7:06 AM CDT Performed by Real-Time Polymerase Chain Reaction (PCR) on the Monica [employer]rera 4800. This assay has been validated for use with post-aliquot samples from the [employer] T5000 processor. us Nina Yates PAC LAB SEND OUTS Final Res ult [facility] [address] [place] [address], [place] from Last 3 Months or Most Recently Relevant to Health Maintenance Insurance MEDICAID [place] MEDICARE Care Teams Machine Plaster Mixer Relationship Specialty Start Date End Date Cindy Miller, NATHAN [address] [place] [address] PCP - General Physician Barge Captain 01/22/22 Shawna Yip APRN, DRONE PILOT [address] [place] [address] Nurse Practitioner Advanced Practice Nurse 05/07/22
--- OUTSIDE RECORDS SUMMARY | 2024-11-17 19:37 | XMS_ITS | Encounter Summary ---
Author Organization [facility] Address [address] [facility] [place] [address] Phone Care Team Providers Care Turret Lathe Tender Name Role Phone Cindy Miller PAC Primary Care Pro vider Shawna Yip PROJECT COACH, LIVESTOCK BUYER Unavailable [phone]- [phone] Reason for Visit * Reason Comments Medication Refill Encounter Details Date Type Department Care Team (Late st Contact Info) Description 09/30/2023 Refill [facility] - Neurology - [place] [address] [place] [address] Shawna Yip, PROJECT COACH, LIVESTOCK BUYER [address] [place] [address] Medication Refill Social History Tobacco Use Types Packs/Day Years Used Date Smoking Tobacco: Former Cigarettes Q uit: 01/28/2015 Smokeless Tobacco: Never Alcohol Use Standard Drinks/Week Comments No 0 (1 standard drink = 0.6 oz pur e alcohol) [facility] Utilities Answer Date Recorded In the past 12 months has [employer], gas, oil, or water company threatened to shut off services in your home? Yes 08/03/2023 Social Connection and Isolation Panel [NHANES] A nswer Date Recorded In a typical week, how many times do you talk on the phone with family, friends, or neighbors? Once a week 08/03/2023 Frequency of Social Gatherings with Friends and Family Not on file 08/03/2023 Attends [employer] Services Not on file 08/03 Active Member [...] Total Score - Questions 1-9 7 01/13 [facility]at [facility] - Occupational Stress Questionnaire Answer Date [...] place to sleep or slept in a care home (including now)? No 08/03/2023 Education Answer [...] Respiratory Rule-Out 04/21/2024 04/21/2024 024 4:11 PM ASSEMBLER GOLF WOOD HEAD COVID - 19 04/21/2024 04/21/2024 04/21/2024 4:11 PM ASSEMBLER GOLF WOOD HEAD COVID - 19 06/09/2024 06/09/2024 06/10/2024 12:1 9 AM ASSEMBLER GOLF WOOD HEAD Assessment Noted Time PHQ-9 Depression Total Score: 7 01/27/20 23 3:00 PM CDT documented as of this encounter Care Teams Turret Lathe Tender Relationship Specialty Start Date End Date Cindy Miller, PAC [address] [place] [address] PCP - General Physician Fish Conservationist 01/22/22 Shawna Yip APRN, LIVESTOCK BUYER [address] [place] [address] Nurse Practitioner Advanced Practice Nurse 05/07/22 documented as of this encounter
--- OUTSIDE RECORDS SUMMARY | 2024-11-17 19:38 | XMS_ITS | Encounter Summary ---
Author Organization [facility] Address [address] [place] [address] Phone Care Team Providers Care Transportation Maintenance Supervisor Name Role Phone Cindy Miller PAC Primary Care Pro vider Shawna Yip ASSOCIATE PROFESSOR OF COMMUNICATION, TOP CAGER Unavailable [phone]- [phone] Reason for Visit * Reason Comments Medication Refill Encounter Details Date Type Department Care Team (Late st Contact Info) Description 07/16/2022 Refill [facility] - Neurology - [place] [address] [place] [address] Shawna Yip, ASSOCIATE PROFESSOR OF COMMUNICATION, TOP CAGER [address] [place] [address] Medication Refill Social History Tobacco Use Types [...] Respiratory Rule-Out 04/21/2024 04/21/2024 024 4:11 PM PATENT CLERK COVID - 19 04/21/2024 04/21/2024 04/21/2024 4:11 PM PATENT CLERK COVID - 19 06/09/2024 06/09/2024 06/10/2024 12:1 9 AM PATENT CLERK Assessment Noted Time PHQ-9 Depression Total Score: 2 01/23/20 4:00 PM CDT documented as of this encounter Care Teams Transportation Maintenance Supervisor Relationship Specialty Start Date End Date Cindy Miller, NATHAN [address] [place] [address] PCP - General Physician Sample Taker Operator 01/22/22 Shawna Yip, ASSOCIATE PROFESSOR OF COMMUNICATION, TOP CAGER [address] [place] [address] Nurse Practitioner Advanced Practice Nurse 05/07/22 documented as of this encounter
--- OUTSIDE RECORDS SUMMARY | 2024-11-17 19:38 | XMS_ITS | Encounter Summary ---
Author Organization [facility] Address [address] [place] [address] Phone Care Team Providers Care Cardiac Cath Technologist Name Role Phone Cindy Miller PAC Primary Care Pro vider Shawna Yip RADIO JOURNALIST, RELIGIOUS RITUAL SLAUGHTERER Unavailable [phone]- [phone] Reason for Visit * Reason Comments Medication Refill Encounter Details Date Type Department Care Team (Late st Contact Info) Description 04/11/2022 Refill [facility] - Neurology - [place] [address] [place] [address] Shawna Yip, RADIO JOURNALIST, RELIGIOUS RITUAL SLAUGHTERER [address] [place] [address] Medication Refill Social History Tobacco Use Types [...] Respiratory Rule-Out 04/21/2024 04/21/2024 024 4:11 PM 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 COVID - 19 04/21/2024 04/21/2024 04/21/2024 4:11 PM 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 COVID - 19 06/09/2024 06/09/2024 06/10/2024 12:1 9 AM 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 Assessment Noted Time PHQ-9 Depression Total Score: 2 01/23/20 22 4:00 PM CDT documented as of this encounter Care Teams Cardiac Cath Technologist Relationship Specialty Start Date End Date Cindy Miller, NATHAN [address] [place] [address] PCP - General Physician Inside Sales Professional 01/22/22 Shawna Yip, RADIO JOURNALIST, RELIGIOUS RITUAL SLAUGHTERER [address] [place] [address] Nurse Practitioner Advanced Practice Nurse 05/07/22 documented as of this encounter
[2024-11-17 19:46] VITALS: BP 122/80; PULSE 65; RESP 20; TEMP 36.7; O2SAT 99
--- NOTE | 2024-11-17 20:00 | ED_ITS ---
HPI - Dental/Oral General Chief complaint: Dental/Oral Stated complaint: Toothache Time Seen by Provider: 11/17/24 19:50 Source: patient and RN notes reviewed Mode of arrival: ambulatory Limitations: no limitations History of Present Illness HPI Narrative: 53-year-old female presents Express Care complaining of tooth pain since yesterday. She says she fractured her right central incisor last night. Patient reports having poor dental hygiene. Patient states the pain is unbearable. Patient has yet to see a dentist and stated she just got on Medicare and unsure where she can go for dentist. Patient states she took ibuprofen prior to arrival her she states ibuprofen makes her stomach upset so she took 1.5 tablets. Patient states the only thing that works for her pain is Tylenol 3. Related Data Home Medications ?Medication ?Instructions ?Recorded ?Confirmed ?Last Taken ?Type escitalopram oxalate 10 mg tablet 10 mg PO DAILY 02/14/24 02/14/24 Unknown History albuterol sulfate 90 mcg/actuation inhalation 07/31/24 Unknown History aerosol inhaler erenumab-aooe 140 mg/mL mg subcut 07/31/24 Unknown History subcutaneous auto-injector (Aimovig Autoinjector) hydroxyzine HCl 10 mg tablet mg 07/31/24 Unknown History rizatriptan 10 mg tablet mg 07/31/24 Unknown History Allergies Allergy/AdvReac Type Severity Reaction Status Date / Time cefprozil Allergy Unknown Hives Verified 11/17/24 19:49 Cephalosporins Allergy Unknown Rash Verified 11/17/24 19:49 Review of Systems Review of Systems: CONSTITUTIONAL: Denies fever, chills, or sweats. EYES: Denies visual changes, redness, or discharge. ENT: Denies rhinorrhea, congestion, sore throat, or otalgia. MOUTH: Positive for dental pain and swelling CARDIOVASCULAR: Denies chest pain, palpitations, or edema. RESPIRATORY: Denies cough or dyspnea. GASTROINTESTINAL: Denies abdominal pain, nausea, vomiting, or diarrhea. GENITOURINARY: Denies dysuria or hematuria. SKIN: Denies rash or itching. MUSCULOSKELETAL: Denies back pain, joint pain, or myalgia. NEUROLOGIC: Denies headache, numbness, or weakness. PSYCHIATRIC: Denies anxiety or depression. All other systems reviewed are negative, except as documented in HPI. PMFSH Past Medical History Medical History Anxiety Surgical History Surgical History History of oophorectomy History of tubal ligation Family History Family History Father Cerebrovascular accident Family history of Alzheimer's disease, Onset Age: 78 Grandparent Cerebrovascular accident Family history of malignant neoplasm Other Family history of blood dyscrasia Family history of pulmonary embolism Social History Social History Smoking status: Former smoker Tobacco type: e-cigarettes/vaping Smoking end date: 06/15/12 Alcohol intake: never Substance use: current Substance use type: marijuana Gender identity (if verbalized by the patient): Female Spiritual care concerns: No Comments At the time of my signature, I reviewed and agree with the nursing past medical, surgical, social, and family history. There is no relevant family history pertinent to the patient complaint. Exam Narrative: GENERAL: This is a well-nourished, well-developed adult, in no apparent distress. They are non ill-appearing, nontoxic appearing. HEAD: normocephalic, atraumatic. EYES: Sclera clear/white. Conjunctiva normal. Vision is grossly intact. Extraocular movements intact EARS: External ears normal, Hearing grossly intact. NOSE: External nose normal THROAT: Mucous membranes moist, posterior pharynx clear, without erythema or swelling. Uvula midline. OROPHARYNX: Gross dental decay and missing teeth throughout. Right central incisor is fractured. Gingivitis present to the lower gum line. It is tender to palpation. No swelling or pain under the tongue. No trismus. NECK: Neck supple CARDIOVASCULAR: Regular rate and rhythm RESPIRATORY: My normal respiratory exam SKIN: warm, Dry, intact with no suspicious lesions or rash, good texture and turgor. NEURO: awake, alert, and oriented to person, place and time. There were no obvious focal neurologic abnormalities. EXTREMITIES: No joint tenderness, effusion, or edema noted. Course Course Emergency Course: Portions of this record may have been created with voice recognition software Level of Care: Express Care Visit Vital Signs Vital signs: Vital Signs Temperature 98.1 F 11/17/24 19:46 Pulse Rate 65 11/17/24 19:46 Respiratory Rate 20 11/17/24 19:46 Blood Pressure 122/80 11/17/24 19:46 Pulse Oximetry 99 11/17/24 19:46 Oxygen Delivery Room Air 11/17/24 19:46 Temperature 98.1 F 11/17/24 19:46 Pulse Rate 65 11/17/24 19:46 Respiratory Rate 20 11/17/24 19:46 Blood Pressure 122/80 11/17/24 19:46 Pulse Oximetry 99 11/17/24 19:46 Oxygen Delivery Room Air 11/17/24 19:46 Reviewed MDM - Dental/Oral MDM Narrative Medical decision making narrative: Patient has a fractured tooth and appears there is evidence of a dental infection. Will treat empirically with Augmentin. Patient asked for a Toradol shot however she is unable to have one because she took ibuprofen prior to arrival. Will prescribe viscous lidocaine as needed for pain. Advised patient to follow-up with dentist. Discussed physical exam findings. Advised supportive measures and signs/symptoms to go to the ER. Pt is appropriate for outpt treatment and f/u. Differential Diagnosis Differential diagnosis: Likely gingival abscess, dental abscess and fracture of tooth Critical Care Time Critical Care Time Critical Care Time: No Discharge Plan Discharge Clinical Impression: Dental infection Patient Disposition: Home Condition: Stable Instructions: Dental Abscess (ED) Additional Instructions: Take the antibiotics as directed. You may take Tylenol as needed for pain. You may use viscous lidocaine as needed for pain in your mouth. Use a Q-tip and apply directly to the affected area. [place] your teeth and floss at least 2 times a day. You may use mouthwash after each brushing as well. Follow-up with dentist next week. He developed worsening swelling, fevers, difficulty swallowing or breathing, difficulty opening her jaw, swelling under the tongue, or any other concerns please go to the ER immediately. Patient Language: Nigerien Prescriptions: New amoxicillin-pot clavulanate 875-125 mg tablet 1 tablet PO Q12H 7 Days Qty: 14 0RF lidocaine HCl [Lidocaine Viscous] 2 % solution 1 applic mucous membrane TID PRN (Reason: pain) Qty: 100 0RF No Action rizatriptan 10 mg tablet albuterol sulfate 90 mcg/actuation HFA aerosol inhaler INHALATION Aimovig Autoinjector 140 mg/mL auto-injector SUBCUT hydroxyzine HCl 10 mg tablet escitalopram oxalate 10 mg tablet 10 mg PO DAILY Follow-up/Referrals: Angela,CASTILLO White [Primary Care Provider] - Time of Disposition: 19:57
== END 2024-11-17 20:01 | disposition home or self-care (01) ==
PROVIDERS: PCP Physician Assistant
DX: K04.7 Periapical abscess without sinus (principal); Z87.891 Personal history of nicotine dependence
CPT/HCPCS: 99213; G0463